=== PATIENT | male | born 1945 | race Caucasian/White ===

== ENCOUNTER 2018-04-07 22:53 | Observation (INO) ==
[2018-04-08] MEDS ORDERED: ONDANSETRON 4 MG/2 ML VIAL IV STA (00:45)
[2018-04-08] MEDS ORDERED: cefTRIAXone 1,000 MG in SODIUM CHLORIDE 0.9% 100 ML IV STA (00:45)
[2018-04-08] MEDS ORDERED: SODIUM CHLORIDE 0.9% 1,000 ML IV STA (00:45)
[2018-04-08] MEDS ORDERED: ACETAMINOPHEN 500 MG TABLET PO STA (00:45)
[2018-04-08 01:21] LABS: Basophils % 0.1 % (0.0-0.8); Eosinophils # 0.1 10*3/uL (0.0-0.87); Eosinophils % 0.9 % (0.00-10.9); Hemoglobin 13.5 GM/DL (14.0-18.0); Immature Granulocytes % 0.5 %; Immature Granulocytes Absolute 0.05 #; Lymphocytes # 0.6 10*3/uL (1.4-4.0); Mean Corpuscular HGB Conc 32.1 GM/DL (32-36); Mean Corpuscular Hemoglobin 34 PG (27-34); Mean Corpuscular Volume 105.8 FL (87-102); Mean Platelet Volume 9.4 FL (9.6-12.0); Monocytes # 1.1 10*3/uL (0.11-0.8); Monocytes % 9.5 % (1.7-12.7); Neutrophils # 9.3 10*3/uL (1.4-7.4); Platelet Count 236 T/CUMM (130-400); Red Blood Count 3.97 MC/CUMM (3.8-5.5); Red Cell Distribution Width 13.7 % (9.3-17.3); White Blood Count 11.1 T/CUMM (4-12)
[2018-04-08 01:44] LABS: Lactic Acid 1.7 MMOL/L (0.4-2.0)
[2018-04-08 01:46] LABS: Albumin 3.4 G/DL (3.4-5.0); Bilirubin,Total 0.7 MG/DL (0.2-1.0); Calcium 8.5 MG/DL (8.5-10.1); Osmolality,Calculated 280.4 MOS/KG (273-304); Potassium 4.4 MMOL/L (3.5-5.1); Total Protein 6.9 G/DL (6.4-8.3)
[2018-04-08 01:57] LABS: Apearance,Urine CLEAR (Clear); Bilirubin,Urine Negative (Negative); Blood, Urine Negative (Negative); Glucose,Urine (UA) Negative (Negative); Hyaline Casts,Urine 2 /LPF (0-3); Ketones,Urine Negative (Negative); Mucus,Urine Occasional /LPF (Occasional); Nitrite,Urine Negative (Negative); Protein,Urine 100 MG/DL; RBC,Urine <1 /HPF (0-4); Urine Color Yellow (Yellow); Urine Specific Gravity 1.013 (1.001-1.035); WBC,Urine 1 /HPF (0-6)
[2018-04-08] MEDS ORDERED: LACTULOSE 20 GM/30 ML UDCUP PO PRN (02:57)
[2018-04-08] MEDS ORDERED: MAGNESIUM HYDROXIDE SUSP 30 ML UDCUP PO PRN (02:57)
[2018-04-08] MEDS ORDERED: TEMAZEPAM 7.5 MG CAPSULE PO PRN (02:57)
[2018-04-08] MEDS ORDERED: ONDANSETRON ODT 4 MG TABLET PO PRN (02:57)
[2018-04-08] MEDS ORDERED: traMADol 50 MG TABLET PO PRN (02:57)
[2018-04-08] MEDS ORDERED: MYLANTA/LIDO VISC 2:1 300 ML BOTTLE SWISH/SPIT PRN (02:57)
[2018-04-08] MEDS ORDERED: ALUMINUM/MAGNES/SIMETH MAX STR 30 ML UDCUP PO PRN (02:57)
[2018-04-08] MEDS ORDERED: ALPRAZolam 0.25 MG TABLET PO PRN (02:57)
[2018-04-08] MEDS ORDERED: ACETAMINOPHEN 325 MG TABLET PO PRN (02:57)
[2018-04-08] MEDS ORDERED: LOPERAMIDE 2 MG CAPSULE PO PRN ×2 (02:57)
[2018-04-08] MEDS ORDERED: MYLANTA/LIDO VISC 2:1 300 ML BOTTLE SWISH/SWAL PRN (02:57)
[2018-04-08] MEDS ORDERED: SODIUM CHLORIDE 0.9% 1,000 ML IV SCH (02:57)
[2018-04-08] MEDS ORDERED: ONDANSETRON 4 MG/2 ML VIAL IV PRN (02:57)
[2018-04-08] MEDS ORDERED: cefTRIAXone 1,000 MG in SYRINGE 1 EACH IV ONE (03:30)
[2018-04-08 05:34] LABS: Basophils % 0.1 % (0.0-0.8); Eosinophils # 0.1 10*3/uL (0.0-0.87); Eosinophils % 0.9 % (0.00-10.9); Hematocrit 35.9 VOL% (42.0-52.0); Hemoglobin 11.8 GM/DL (14.0-18.0); Immature Granulocytes % 0.4 %; Immature Granulocytes Absolute 0.04 #; Lymphocytes # 0.8 10*3/uL (1.4-4.0); Lymphocytes % 7.8 % (21.2-54.2); Mean Corpuscular HGB Conc 32.9 GM/DL (32-36); Mean Corpuscular Hemoglobin 34 PG (27-34); Mean Corpuscular Volume 104.1 FL (87-102); Mean Platelet Volume 9.9 FL (9.6-12.0); Monocytes % 10.2 % (1.7-12.7); Neutrophils # 7.9 10*3/uL (1.4-7.4); Neutrophils % 80.6 % (38.7-73.9); Platelet Count 233 T/CUMM (130-400); Red Blood Count 3.45 MC/CUMM (3.8-5.5); Red Cell Distribution Width 13.9 % (9.3-17.3); White Blood Count 9.8 T/CUMM (4-12)
[2018-04-08] MEDS ORDERED: LEVOTHYROXINE 50 MCG TABLET PO SCH (06:00)
[2018-04-08 06:13] LABS: PT Patient Result 10.3 SECS
[2018-04-08 06:21] LABS: Bilirubin,Total 0.7 MG/DL (0.2-1.0); Calcium 8.2 MG/DL (8.5-10.1); Osmolality,Calculated 279.4 MOS/KG (273-304); Total Protein 6.5 G/DL (6.4-8.3)
[2018-04-08] MEDS ORDERED: CETIRIZINE 10 MG TABLET PO SCH (09:00)
[2018-04-08] MEDS ORDERED: FELODIPINE 5 MG TABLET PO SCH (09:00)
[2018-04-08] MEDS ORDERED: ASPIRIN EC 81 MG TABLET PO SCH (09:00)
[2018-04-08] MEDS ORDERED: CARVEDILOL CR 20 MG CAPSULE PO SCH (09:00)
[2018-04-08] MEDS ORDERED: MULTIVITAMIN (CENTRUM) TABLET PO SCH (09:00)
[2018-04-08 11:54] VITALS: BP 129/70
[2018-04-08] MEDS ORDERED: PAZOPANIB HCL PO SCH (21:00)
== END 2018-04-08 11:05 | disposition home or self-care (01) ==
LOC: N.ED 22:53 → N.EDINP 22:53 → N.4E 04-08 03:06
PROVIDERS: ADMIT Specialist; ATTEND Specialist

== ENCOUNTER 2021-12-29 13:40 | Inpatient (IN) ==
[2021-12-29] MEDS ORDERED: SODIUM CHLORIDE 0.9% 1,000 ML IV STA ×2 (16:17→19:44)
[2021-12-29 17:18] LABS: Basophils % 0.5 % (0.0-0.8); Eosinophils # 0.1 10*3/uL (0.0-0.87); Eosinophils % 0.9 % (0.00-10.9); Hematocrit 36.4 VOL% (42.0-52.0); Hemoglobin 11.7 GM/DL (14.0-18.0); Immature Granulocytes % 2.3 %; Lymphocytes # 0.3 10*3/uL (1.4-4.0); Lymphocytes % 3.6 % (21.2-54.2); Mean Corpuscular HGB Conc 32.1 GM/DL (32-36); Mean Platelet Volume 9.9 FL (9.6-12.0); Monocytes % 14.1 % (1.7-12.7); Neutrophils % 78.6 % (38.7-73.9); Platelet Count 320 T/CUMM (130-400); Red Blood Count 3.83 MC/CUMM (3.8-5.5); Red Cell Distribution Width 13.4 % (9.3-17.3); White Blood Count 8.6 T/CUMM (4-12)
[2021-12-29 18:09] LABS: Albumin 2.4 G/DL (3.4-5.0); Bilirubin,Total 0.6 MG/DL (0.20-1.00); Osmolality,Calculated 259.8 MOS/KG (273-304)
[2021-12-29] MEDS ORDERED: diphenhydrAMINE CAP 25 MG CAPSULE PO PRN (21:00)
[2021-12-29] MEDS ORDERED: NICOTINE 21 MG/24 HR PATCH TRANSDERM PRN (21:00)
[2021-12-29] MEDS ORDERED: DOCUSATE SODIUM 100 MG CAPSULE PO PRN (21:00)
[2021-12-29] MEDS ORDERED: cefTRIAXone 1,000 MG in SODIUM CHLORIDE 0.9% 100 ML IV SCH (21:00)
[2021-12-29] MEDS ORDERED: ONDANSETRON 4 MG/2 ML VIAL IV PRN (21:00)
[2021-12-29] MEDS ORDERED: ACETAMINOPHEN 325 MG TABLET PO PRN (21:00)
[2021-12-29] MEDS ORDERED: DEXTROSE 10% 250 ML BAG IV PRN (21:00)
[2021-12-29] MEDS ORDERED: GLUCAGON 1 MG VIAL IM PRN (21:00)
[2021-12-29] MEDS ORDERED: hydrALAZINE 20 MG/1 ML VIAL IV PRN (21:00)
[2021-12-29] MEDS: HEPARIN 5,000 UNIT/1 ML VIAL SUBCUT SCH (21:50)
[2021-12-29] MEDS: metroNIDAZOLE INJ 500 MG/100 ML PREMIX IV SCH (21:50)
[2021-12-29] MEDS: SODIUM CHLORIDE 0.9% 1,000 ML IV SCH (23:25)
[2021-12-30] MEDS: AZITHROMYCIN INJ 500 MG in SODIUM CHLORIDE 0.9% 250 ML IV SCH ×2 (00:20→23:57)
[2021-12-30] MEDS: ALBUTEROL 2.5 MG/3 ML NEB RESP TX SCH ×4 (01:04→17:50)
[2021-12-30 05:05] LABS: Basophils # 0.1 10*3/uL (0.0-0.2); Basophils % 0.5 % (0.0-0.8); Eosinophils # 0.1 10*3/uL (0.0-0.87); Eosinophils % 0.5 % (0.00-10.9); Hematocrit 30.9 VOL% (42.0-52.0); Hemoglobin 9.8 GM/DL (14.0-18.0); Lymphocytes # 0.3 10*3/uL (1.4-4.0); Lymphocytes % 2.8 % (21.2-54.2); Mean Corpuscular HGB Conc 31.7 GM/DL (32-36); Mean Corpuscular Volume 95.7 FL (87-102); Mean Platelet Volume 8.7 FL (9.6-12.0); Monocytes % 12.9 % (1.7-12.7); Neutrophils % 80.3 % (38.7-73.9); Platelet Count 325 T/CUMM (130-400); Red Blood Count 3.23 MC/CUMM (3.8-5.5); Red Cell Distribution Width 13.2 % (9.3-17.3); White Blood Count 9.9 T/CUMM (4-12)
[2021-12-30 05:26] LABS: Band Neutrophils 4 % (0-10); Eosinophils 1 % (0-10); Hypochromia 1+; Lymphocytes 4 % (20-55); Microcytosis 1+; Platelet Estimate Adequate; Segmented Neutrophils 79 % (50-85); Total Cells Counted 100
[2021-12-30] MEDS: metroNIDAZOLE INJ 500 MG/100 ML PREMIX IV SCH ×3 (05:31→21:30)
[2021-12-30 05:41] LABS: Albumin 2.1 G/DL (3.4-5.0); Bilirubin,Total 0.4 MG/DL (0.20-1.00); Calcium 6.5 MG/DL (8.5-10.1); Osmolality,Calculated 266.2 MOS/KG (273-304); Potassium 3.6 MMOL/L (3.5-5.1); Thyroid Stimulating Hormone 1.13 uIU/ml (0.358-3.74); Total Protein 5.5 G/DL (6.4-8.2)
[2021-12-30 06:24] LABS: Bilirubin,Urine Negative (Negative); Blood, Urine Negative (Negative); Glucose,Urine (UA) Negative (Negative); Ketones,Urine 20 mg/dL (Negative); Mucus,Urine Occasional /LPF (Occasional); Nitrite,Urine Negative (Negative); Protein,Urine 30 MG/DL; RBC,Urine 1 /HPF (0-4); Urine Appearance CLEAR (Clear); Urine Color Yellow (Yellow); Urine Specific Gravity 1.045 (1.001-1.035); Urine Urobilinogen < 2.0 EU/DL (<2.0)
[2021-12-30] MEDS: PANTOPRAZOLE 40 MG TABLET PO SCH (11:07)
[2021-12-30] MEDS: HEPARIN 5,000 UNIT/1 ML VIAL SUBCUT SCH ×2 (11:08→21:32)
[2021-12-30] MEDS: methylPREDNISolone SOD SUC 125 MG/2 ML VIAL IV SCH ×2 (11:08→21:35)
[2021-12-30] MEDS: SODIUM CHLORIDE 0.9% 1,000 ML IV SCH (11:41)
[2021-12-30 13:56] LABS: Hepatitis B Surface Ag Quant < 0.10 Index; Hepatitis B Surface Ag Result Non-Reactive (NonReactive); Hepatitis C Virus Ab Quant 0.07 Index; Hepatitis C Virus Ab Result Non-Reactive (NonReactive)
[2021-12-30] MEDS ORDERED: cefTRIAXone 2,000 MG in SODIUM CHLORIDE 0.9% 100 ML IV SCH (16:12)
[2021-12-30] MEDS ORDERED: ALBUTEROL 2.5 MG/3 ML NEB RESP TX PRN (17:45)
[2021-12-30] MEDS: INSULIN REGULAR 100 UNIT/ML SUBCUT SCH (21:31)
[2021-12-31] MEDS: SODIUM CHLORIDE 0.9% 1,000 ML IV SCH ×2 (00:12→21:15)
[2021-12-31] MEDS: ALBUTEROL 2.5 MG/3 ML NEB RESP TX SCH ×4 (01:43→19:30)
[2021-12-31] MEDS: metroNIDAZOLE INJ 500 MG/100 ML PREMIX IV SCH ×2 (04:30→13:27)
[2021-12-31] MEDS ORDERED: SODIUM CHLORIDE 0.65% NASAL SPRAY 45 ML BOTTLE BOTH NARES PRN (04:55)
[2021-12-31 05:13] LABS: Basophils % 0.4 % (0.0-0.8); Hematocrit 32.5 VOL% (42.0-52.0); Hemoglobin 10.2 GM/DL (14.0-18.0); Immature Granulocytes Absolute 0.52 #; Lymphocytes # 0.2 10*3/uL (1.4-4.0); Lymphocytes % 1.8 % (21.2-54.2); Mean Corpuscular HGB Conc 31.4 GM/DL (32-36); Mean Corpuscular Volume 94.5 FL (87-102); Mean Platelet Volume 8.9 FL (9.6-12.0); Monocytes % 2.7 % (1.7-12.7); Neutrophils % 90.1 % (38.7-73.9); Platelet Count 353 T/CUMM (130-400); Red Blood Count 3.44 MC/CUMM (3.8-5.5); Red Cell Distribution Width 13.4 % (9.3-17.3); White Blood Count 10.4 T/CUMM (4-12)
[2021-12-31] MEDS: LEVOTHYROXINE 50 MCG TABLET PO SCH (05:38)
[2021-12-31 05:42] LABS: Calcium 6.1 MG/DL (8.5-10.1); Osmolality,Calculated 285.5 MOS/KG (273-304); Potassium 3.6 MMOL/L (3.5-5.1)
[2021-12-31 05:44] LABS: Lymphocytes 2 % (20-55); Platelet Estimate Adequate; Segmented Neutrophils 92 % (50-85); Total Cells Counted 100
[2021-12-31] MEDS: PANTOPRAZOLE 40 MG TABLET PO SCH (09:47)
[2021-12-31] MEDS: CHOLECALCIFEROL 1,000 UNIT TABLET PO SCH (09:47)
[2021-12-31] MEDS: INSULIN REGULAR 100 UNIT/ML SUBCUT SCH ×4 (09:48→21:24)
[2021-12-31] MEDS: HEPARIN 5,000 UNIT/1 ML VIAL SUBCUT SCH ×2 (09:48→21:21)
[2021-12-31] MEDS: methylPREDNISolone SOD SUC 125 MG/2 ML VIAL IV SCH ×2 (09:48→21:18)
[2021-12-31] MEDS: guaiFENesin/DM ER 600-30 MG TABLET PO PRN (09:57)
[2021-12-31] MEDS: BENZONATATE 100 MG CAPSULE PO SCH ×2 (15:37→21:18)
[2021-12-31] MEDS: MEROPENEM 500 MG in SODIUM CHLORIDE 0.9% 100 ML IV SCH ×2 (15:37→21:15)
[2021-12-31] MEDS: CHOLESTYRAMINE 4 GM PACK PO SCH (21:18)
[2021-12-31] MEDS: AZITHROMYCIN INJ 500 MG in SODIUM CHLORIDE 0.9% 250 ML IV SCH (23:52)
[2022-01-01] MEDS: ZALEPLON 5 MG CAPSULE PO PRN ×2 (00:05→23:22)
[2022-01-01] MEDS: ALBUTEROL 2.5 MG/3 ML NEB RESP TX SCH ×4 (00:30→19:23)
[2022-01-01] MEDS: MEROPENEM 500 MG in SODIUM CHLORIDE 0.9% 100 ML IV SCH ×4 (03:53→21:27)
[2022-01-01] MEDS: SODIUM CHLORIDE 0.9% 1,000 ML IV SCH ×2 (03:54→13:11)
[2022-01-01] MEDS: LEVOTHYROXINE 50 MCG TABLET PO SCH (06:10)
[2022-01-01 07:10] LABS: Basophils # 0.1 10*3/uL (0.0-0.2); Basophils % 0.4 % (0.0-0.8); Hematocrit 30.5 VOL% (42.0-52.0); Hemoglobin 10.1 GM/DL (14.0-18.0); Immature Granulocytes % 7.8 %; Immature Granulocytes Absolute 1.44 #; Lymphocytes # 0.2 10*3/uL (1.4-4.0); Lymphocytes % 1.2 % (21.2-54.2); Mean Corpuscular HGB Conc 33.1 GM/DL (32-36); Mean Corpuscular Volume 92.7 FL (87-102); Mean Platelet Volume 9.1 FL (9.6-12.0); Neutrophils % 87.6 % (38.7-73.9); Platelet Count 368 T/CUMM (130-400); Red Blood Count 3.29 MC/CUMM (3.8-5.5); Red Cell Distribution Width 13.8 % (9.3-17.3); White Blood Count 18.6 T/CUMM (4-12)
[2022-01-01 07:33] LABS: Calcium 6.1 MG/DL (8.5-10.1); Osmolality,Calculated 289.5 MOS/KG (273-304); Potassium 3.1 MMOL/L (3.5-5.1)
[2022-01-01 07:39] LABS: Band Neutrophils 2 % (0-10); Hypochromia Slight; Lymphocytes 2 % (20-55); Microcytosis Slight; Platelet Estimate Adequate; Segmented Neutrophils 92 % (50-85); Total Cells Counted 100
[2022-01-01] MEDS: CHOLECALCIFEROL 1,000 UNIT TABLET PO SCH (08:56)
[2022-01-01] MEDS: guaiFENesin/DM ER 600-30 MG TABLET PO PRN ×2 (08:57→21:43)
[2022-01-01] MEDS: INSULIN REGULAR 100 UNIT/ML SUBCUT SCH ×4 (08:57→21:29)
[2022-01-01] MEDS: BENZONATATE 100 MG CAPSULE PO SCH ×3 (08:57→21:27)
[2022-01-01] MEDS: PANTOPRAZOLE 40 MG TABLET PO SCH (08:57)
[2022-01-01] MEDS: methylPREDNISolone SOD SUC 125 MG/2 ML VIAL IV SCH ×2 (08:58→21:27)
[2022-01-01] MEDS: HEPARIN 5,000 UNIT/1 ML VIAL SUBCUT SCH ×2 (08:59→21:27)
[2022-01-01] MEDS: CHOLESTYRAMINE 4 GM PACK PO SCH ×2 (09:04→21:29)
[2022-01-01] MEDS ORDERED: POTASSIUM CHLORIDE 20 MEQ TABLET PO ONE (16:13)
[2022-01-01] MEDS: FUROSEMIDE 40 MG TABLET PO SCH (17:34)
[2022-01-01] MEDS ORDERED: INSULIN GLARGINE 100 UNIT/ML SUBCUT SCH (21:00)
[2022-01-01] MEDS: SPIRONOLACTONE 50 MG TABLET PO SCH (21:27)
[2022-01-01] MEDS: AZITHROMYCIN INJ 500 MG in SODIUM CHLORIDE 0.9% 250 ML IV SCH (22:31)
[2022-01-02] MEDS: ALBUTEROL 2.5 MG/3 ML NEB RESP TX SCH ×4 (00:30→18:17)
[2022-01-02] MEDS: MEROPENEM 500 MG in SODIUM CHLORIDE 0.9% 100 ML IV SCH ×4 (04:25→22:27)
[2022-01-02] MEDS: LEVOTHYROXINE 50 MCG TABLET PO SCH (05:49)
[2022-01-02 06:38] LABS: Basophils # 0.1 10*3/uL (0.0-0.2); Basophils % 0.5 % (0.0-0.8); Hematocrit 30.9 VOL% (42.0-52.0); Hemoglobin 10.2 GM/DL (14.0-18.0); Immature Granulocytes % 9.5 %; Immature Granulocytes Absolute 1.67 #; Lymphocytes # 0.3 10*3/uL (1.4-4.0); Lymphocytes % 1.6 % (21.2-54.2); Mean Corpuscular Volume 92.5 FL (87-102); Monocytes % 3.4 % (1.7-12.7); NRBC # 0.05 10*3/uL; Platelet Count 362 T/CUMM (130-400); Red Blood Count 3.34 MC/CUMM (3.8-5.5); Red Cell Distribution Width 14.1 % (9.3-17.3); White Blood Count 17.6 T/CUMM (4-12)
[2022-01-02 06:59] LABS: Band Neutrophils 1 % (0-10); Lymphocytes 5 % (20-55); Segmented Neutrophils 88 % (50-85); Total Cells Counted 100
[2022-01-02 07:00] LABS: Platelet Estimate Normal
[2022-01-02 07:01] LABS: Hypochromia Slight
[2022-01-02 07:05] LABS: Osmolality,Calculated 292.7 MOS/KG (273-304); Potassium 3.1 MMOL/L (3.5-5.1)
[2022-01-02] MEDS: SODIUM CHLORIDE 0.9% 1,000 ML IV SCH (09:13)
[2022-01-02] MEDS: FUROSEMIDE 40 MG TABLET PO SCH ×2 (10:08→16:54)
[2022-01-02] MEDS: CHOLECALCIFEROL 1,000 UNIT TABLET PO SCH (10:08)
[2022-01-02] MEDS: SPIRONOLACTONE 50 MG TABLET PO SCH ×2 (10:08→22:22)
[2022-01-02] MEDS: BENZONATATE 100 MG CAPSULE PO SCH ×3 (10:08→22:21)
[2022-01-02] MEDS: PANTOPRAZOLE 40 MG TABLET PO SCH (10:08)
[2022-01-02] MEDS: HEPARIN 5,000 UNIT/1 ML VIAL SUBCUT SCH ×2 (10:08→22:22)
[2022-01-02] MEDS: methylPREDNISolone SOD SUC 125 MG/2 ML VIAL IV SCH ×2 (10:09→22:27)
[2022-01-02] MEDS: CHOLESTYRAMINE 4 GM PACK PO SCH (10:09)
[2022-01-02] MEDS: INSULIN REGULAR 100 UNIT/ML SUBCUT SCH ×4 (10:09→22:25)
[2022-01-02] MEDS: BACILLUS COAGULANS CAPLET PO SCH (16:54)
[2022-01-02] MEDS: guaiFENesin/DM ER 600-30 MG TABLET PO PRN (16:54)
[2022-01-02] MEDS ORDERED: CHOLESTYRAMINE 4 GM PACK PO SCH (22:00)
[2022-01-02] MEDS: POTASSIUM CHLORIDE 20 MEQ TABLET PO SCH (22:21)
[2022-01-02] MEDS: INSULIN GLARGINE 100 UNIT/ML SUBCUT SCH (22:23)
[2022-01-02] MEDS: ZALEPLON 5 MG CAPSULE PO PRN (22:27)
[2022-01-03] MEDS: ALBUTEROL 2.5 MG/3 ML NEB RESP TX SCH ×4 (00:14→18:14)
[2022-01-03] MEDS: MEROPENEM 500 MG in SODIUM CHLORIDE 0.9% 100 ML IV SCH ×4 (04:24→20:43)
[2022-01-03 05:22] LABS: Basophils # 0.1 10*3/uL (0.0-0.2); Basophils % 0.4 % (0.0-0.8); Hematocrit 30.6 VOL% (42.0-52.0); Hemoglobin 9.9 GM/DL (14.0-18.0); Immature Granulocytes % 10.7 %; Immature Granulocytes Absolute 1.71 #; Lymphocytes # 0.3 10*3/uL (1.4-4.0); Lymphocytes % 1.8 % (21.2-54.2); Mean Corpuscular HGB Conc 32.4 GM/DL (32-36); Mean Corpuscular Volume 93.3 FL (87-102); Mean Platelet Volume 9.1 FL (9.6-12.0); NRBC # 0.08 10*3/uL; Neutrophils % 83.1 % (38.7-73.9); Platelet Count 324 T/CUMM (130-400); Red Blood Count 3.28 MC/CUMM (3.8-5.5)
[2022-01-03 05:34] LABS: Osmolality,Calculated 287.7 MOS/KG (273-304); Potassium 3.7 MMOL/L (3.5-5.1)
[2022-01-03] MEDS: LEVOTHYROXINE 50 MCG TABLET PO SCH (06:05)
[2022-01-03 06:08] LABS: Lymphocytes 4 % (20-55); Metamyelocytes 1 %; Nucleated Red Blood Cells 1 (0-5); Segmented Neutrophils 91 % (50-85); Total Cells Counted 100
[2022-01-03 06:09] LABS: Hypochromia 1+
[2022-01-03 06:10] LABS: Microcytosis 1+
[2022-01-03] MEDS: PANTOPRAZOLE 40 MG TABLET PO SCH ×2 (10:15→20:34)
[2022-01-03] MEDS: methylPREDNISolone SOD SUC 125 MG/2 ML VIAL IV SCH ×2 (10:15→20:41)
[2022-01-03] MEDS: HEPARIN 5,000 UNIT/1 ML VIAL SUBCUT SCH ×2 (10:15→20:42)
[2022-01-03] MEDS: CHOLECALCIFEROL 1,000 UNIT TABLET PO SCH (10:15)
[2022-01-03] MEDS: BENZONATATE 100 MG CAPSULE PO SCH ×3 (10:15→20:33)
[2022-01-03] MEDS: BACILLUS COAGULANS CAPLET PO SCH (10:15)
[2022-01-03] MEDS: CHOLESTYRAMINE 4 GM PACK PO SCH ×2 (10:15→21:22)
[2022-01-03] MEDS: SPIRONOLACTONE 50 MG TABLET PO SCH ×2 (10:15→20:34)
[2022-01-03] MEDS: FUROSEMIDE 40 MG TABLET PO SCH ×2 (10:15→17:00)
[2022-01-03] MEDS: POTASSIUM CHLORIDE 20 MEQ TABLET PO SCH ×2 (10:15→20:34)
[2022-01-03] MEDS: INSULIN REGULAR 100 UNIT/ML SUBCUT SCH ×4 (11:23→21:15)
[2022-01-03] MEDS: GABAPENTIN 100 MG CAPSULE PO SCH (20:33)
[2022-01-03] MEDS: LOPERAMIDE 2 MG CAPSULE PO SCH (20:34)
[2022-01-03] MEDS: guaiFENesin/DM ER 600-30 MG TABLET PO SCH (21:15)
[2022-01-03] MEDS: INSULIN GLARGINE 100 UNIT/ML SUBCUT SCH (21:15)
[2022-01-04] MEDS: ALBUTEROL 2.5 MG/3 ML NEB RESP TX SCH ×4 (00:50→19:43)
[2022-01-04] MEDS: MEROPENEM 500 MG in SODIUM CHLORIDE 0.9% 100 ML IV SCH ×4 (02:00→21:18)
[2022-01-04 05:02] LABS: Basophils # 0.1 10*3/uL (0.0-0.2); Basophils % 0.4 % (0.0-0.8); Eosinophils % 0.1 % (0.00-10.9); Hematocrit 29.9 VOL% (42.0-52.0); Hemoglobin 9.7 GM/DL (14.0-18.0); Immature Granulocytes % 12.6 %; Immature Granulocytes Absolute 2.18 #; Lymphocytes # 0.3 10*3/uL (1.4-4.0); Lymphocytes % 1.8 % (21.2-54.2); Mean Corpuscular HGB Conc 32.4 GM/DL (32-36); Mean Corpuscular Volume 94.6 FL (87-102); Mean Platelet Volume 8.9 FL (9.6-12.0); Monocytes % 3.3 % (1.7-12.7); NRBC # 0.14 10*3/uL; Neutrophils % 81.8 % (38.7-73.9); Platelet Count 328 T/CUMM (130-400); Red Blood Count 3.16 MC/CUMM (3.8-5.5); Red Cell Distribution Width 14.2 % (9.3-17.3); White Blood Count 17.4 T/CUMM (4-12)
[2022-01-04 05:24] LABS: Osmolality,Calculated 288.3 MOS/KG (273-304); Potassium 4.3 MMOL/L (3.5-5.1)
[2022-01-04 05:35] LABS: Band Neutrophils 3 % (0-10); Hypochromia 1+; Lymphocytes 2 % (20-55); Microcytosis 1+; Nucleated Red Blood Cells 1 (0-5); Ovalocytes Slight; Platelet Estimate Adequate; Segmented Neutrophils 93 % (50-85); Total Cells Counted 100
[2022-01-04] MEDS: LEVOTHYROXINE 50 MCG TABLET PO SCH (06:14)
[2022-01-04] MEDS ORDERED: methylPREDNISolone SOD SUC 125 MG/2 ML VIAL IV ONE (08:50)
[2022-01-04] MEDS: INSULIN REGULAR 100 UNIT/ML SUBCUT SCH ×4 (09:00→21:17)
[2022-01-04] MEDS: POTASSIUM CHLORIDE 20 MEQ TABLET PO SCH ×2 (09:34→21:16)
[2022-01-04] MEDS: PANTOPRAZOLE 40 MG TABLET PO SCH ×2 (09:34→21:16)
[2022-01-04] MEDS: BACILLUS COAGULANS CAPLET PO SCH (09:34)
[2022-01-04] MEDS: GABAPENTIN 100 MG CAPSULE PO SCH ×3 (09:34→21:16)
[2022-01-04] MEDS: BENZONATATE 100 MG CAPSULE PO SCH ×3 (09:34→21:16)
[2022-01-04] MEDS: LOPERAMIDE 2 MG CAPSULE PO SCH ×3 (09:34→21:21)
[2022-01-04] MEDS: CHOLESTYRAMINE 4 GM PACK PO SCH ×2 (09:34→21:16)
[2022-01-04] MEDS: SPIRONOLACTONE 50 MG TABLET PO SCH ×2 (09:34→21:16)
[2022-01-04] MEDS: CHOLECALCIFEROL 1,000 UNIT TABLET PO SCH (09:34)
[2022-01-04] MEDS: FUROSEMIDE 40 MG TABLET PO SCH ×2 (09:43→16:57)
[2022-01-04] MEDS: guaiFENesin/DM ER 600-30 MG TABLET PO SCH ×2 (10:31→21:16)
[2022-01-04] MEDS: HEPARIN 5,000 UNIT/1 ML VIAL SUBCUT SCH ×2 (10:35→21:17)
[2022-01-04] MEDS: FLUTICASONE 50 MCG NASAL SPRAY 16 GM BOTTLE BOTH NARES SCH ×2 (10:38→21:17)
[2022-01-04] MEDS: INSULIN GLARGINE 100 UNIT/ML SUBCUT SCH (21:17)
[2022-01-05] MEDS: ALBUTEROL 2.5 MG/3 ML NEB RESP TX SCH ×3 (01:32→13:20)
[2022-01-05] MEDS: MEROPENEM 500 MG in SODIUM CHLORIDE 0.9% 100 ML IV SCH ×2 (05:17→10:51)
[2022-01-05] MEDS: LEVOTHYROXINE 50 MCG TABLET PO SCH ×2 (05:17→05:59)
[2022-01-05 05:43] LABS: Basophils # 0.1 10*3/uL (0.0-0.2); Basophils % 0.5 % (0.0-0.8); Eosinophils % 0.1 % (0.00-10.9); Hematocrit 32.7 VOL% (42.0-52.0); Hemoglobin 10.4 GM/DL (14.0-18.0); Immature Granulocytes % 13.5 %; Immature Granulocytes Absolute 2.47 #; Lymphocytes # 0.5 10*3/uL (1.4-4.0); Lymphocytes % 2.6 % (21.2-54.2); Mean Corpuscular HGB Conc 31.8 GM/DL (32-36); Mean Platelet Volume 9.2 FL (9.6-12.0); Monocytes % 5.6 % (1.7-12.7); NRBC # 0.15 10*3/uL; Neutrophils % 77.7 % (38.7-73.9); Platelet Count 324 T/CUMM (130-400); Red Blood Count 3.37 MC/CUMM (3.8-5.5); Red Cell Distribution Width 14.4 % (9.3-17.3); White Blood Count 18.4 T/CUMM (4-12)
[2022-01-05 05:59] LABS: Calcium 6.3 MG/DL (8.5-10.1); Osmolality,Calculated 282.8 MOS/KG (273-304); Potassium 5.1 MMOL/L (3.5-5.1)
[2022-01-05 06:13] LABS: Band Neutrophils 1 % (0-10); Hypochromia Slight; Lymphocytes 5 % (20-55); Microcytosis Slight; Nucleated Red Blood Cells 1 (0-5); Platelet Estimate Adequate; Segmented Neutrophils 87 % (50-85); Total Cells Counted 100
[2022-01-05] MEDS: INSULIN REGULAR 100 UNIT/ML SUBCUT SCH ×2 (08:12→11:56)
[2022-01-05] MEDS: PANTOPRAZOLE 40 MG TABLET PO SCH (09:36)
[2022-01-05] MEDS: POTASSIUM CHLORIDE 20 MEQ TABLET PO SCH (09:36)
[2022-01-05] MEDS: CHOLECALCIFEROL 1,000 UNIT TABLET PO SCH (09:36)
[2022-01-05] MEDS: GABAPENTIN 100 MG CAPSULE PO SCH (09:37)
[2022-01-05] MEDS: SPIRONOLACTONE 50 MG TABLET PO SCH (09:37)
[2022-01-05] MEDS: LOPERAMIDE 2 MG CAPSULE PO SCH (09:37)
[2022-01-05] MEDS: BENZONATATE 100 MG CAPSULE PO SCH (09:37)
[2022-01-05] MEDS: BACILLUS COAGULANS CAPLET PO SCH (09:37)
[2022-01-05] MEDS: FUROSEMIDE 40 MG TABLET PO SCH (09:38)
[2022-01-05] MEDS: guaiFENesin/DM ER 600-30 MG TABLET PO SCH (09:38)
[2022-01-05] MEDS: FLUTICASONE 50 MCG NASAL SPRAY 16 GM BOTTLE BOTH NARES SCH (10:51)
[2022-01-05] MEDS: HEPARIN 5,000 UNIT/1 ML VIAL SUBCUT SCH (10:51)
[2022-01-05] MEDS: CHOLESTYRAMINE 4 GM PACK PO SCH (10:51)
[2022-01-05 12:30] VITALS: BP 148/80
[2022-01-05] MEDS ORDERED: metroNIDAZOLE 500 MG TABLET PO SCH (15:00)
[2022-01-05] MEDS ORDERED: CIPROFLOXACIN 500 MG TABLET PO SCH (21:00)
== END 2022-01-05 15:43 | disposition home or self-care (01) | DRG 391 ==
LOC: N.ED 13:40 → N.EDINP 21:00 → N.TELES 22:08
PROVIDERS: ADMIT Hospitalist; ATTEND Hospitalist

== ENCOUNTER 2022-01-06 12:18 | Inpatient (IN) ==
[2022-01-06] MEDS ORDERED: DEXTROSE 50% 25 GM/50 ML SYRINGE IV ONE ×2 (13:32→15:34)
[2022-01-06] MEDS ORDERED: DEXTROSE 50% 25 GM/50 ML VIAL IV STA (13:41)
[2022-01-06 14:50] LABS: Potassium 5.1 MMOL/L (3.5-5.1)
[2022-01-06 14:52] LABS: Calcium 6.9 MG/DL (8.5-10.1)
[2022-01-06 14:53] LABS: Basophils # 0.1 10*3/uL (0.0-0.2); Basophils % 0.5 % (0.0-0.8); Eosinophils # 0.1 10*3/uL (0.0-0.87); Eosinophils % 0.6 % (0.00-10.9); Hematocrit 42.2 VOL% (42.0-52.0); Hemoglobin 13.7 GM/DL (14.0-18.0); Immature Granulocytes % 7.9 %; Immature Granulocytes Absolute 1.93 #; Lymphocytes # 0.3 10*3/uL (1.4-4.0); Lymphocytes % 1.3 % (21.2-54.2); Mean Corpuscular HGB Conc 32.5 GM/DL (32-36); Mean Corpuscular Volume 93.4 FL (87-102); Mean Platelet Volume 9.1 FL (9.6-12.0); Monocytes % 4.1 % (1.7-12.7); NRBC # 0.14 10*3/uL; Neutrophils % 85.6 % (38.7-73.9); Platelet Count 393 T/CUMM (130-400); Red Blood Count 4.52 MC/CUMM (3.8-5.5); Red Cell Distribution Width 14.5 % (9.3-17.3); White Blood Count 24.6 T/CUMM (4-12)
[2022-01-06 14:58] LABS: Albumin 3.2 G/DL (3.4-5.0); Bilirubin,Total 0.8 MG/DL (0.20-1.00); Total Protein 6.5 G/DL (6.4-8.2)
[2022-01-06 15:10] LABS: Band Neutrophils 2 % (0-10); Lymphocytes 3 % (20-55); Metamyelocytes 5 %; Myelocytes 3 %; Segmented Neutrophils 84 % (50-85); Total Cells Counted 100
[2022-01-06 15:11] LABS: Platelet Estimate Normal; Polychromasia 1+
[2022-01-06] MEDS ORDERED: GLUCAGON 1 MG VIAL IM PRN (16:05)
[2022-01-06] MEDS ORDERED: DEXTROSE 10% 25 GM/250 ML BAG IV PRN (16:05)
[2022-01-06] MEDS ORDERED: ONDANSETRON 4 MG/2 ML VIAL IV PRN (16:15)
[2022-01-06] MEDS ORDERED: hydrALAZINE 20 MG/1 ML VIAL IV PRN (16:15)
[2022-01-06] MEDS ORDERED: ACETAMINOPHEN 325 MG TABLET PO PRN (16:15)
[2022-01-06] MEDS ORDERED: ALBUTEROL 0.63 MG/3 ML NEB RESP TX PRN (16:24)
[2022-01-06] MEDS ORDERED: CALCIUM GLUCONATE RIDER 2,000 MG/100 ML PREMIX IV ONE (16:45)
[2022-01-06 20:01] LABS: Bacteria,Urine Occasional /HPF (Few); Bilirubin,Urine Negative (Negative); Blood, Urine Large mg/dL (Negative); Glucose,Urine (UA) 50 mg/dL (Negative); Ketones,Urine Negative (Negative); Mucus,Urine Occasional /LPF (Occasional); Nitrite,Urine Negative (Negative); Protein,Urine 30 MG/DL; RBC,Urine 4 /HPF (0-4); Urine Appearance CLEAR (Clear); Urine Color Yellow (Yellow); Urine Specific Gravity 1.012 (1.001-1.035); Urine Urobilinogen < 2.0 EU/DL (<2.0)
[2022-01-06] MEDS: cefTRIAXone 2,000 MG in SODIUM CHLORIDE 0.9% 100 ML IV SCH (20:28)
[2022-01-06] MEDS: DEXTROSE 5% NACL 0.45% 1,000 ML IV SCH (20:28)
[2022-01-06] MEDS: metroNIDAZOLE INJ 500 MG/100 ML PREMIX IV SCH (22:18)
[2022-01-06] MEDS: ENOXAPARIN 30 MG/0.3 ML SYRINGE SUBCUT SCH (22:18)
[2022-01-06] MEDS: methylPREDNISolone SOD SUC 40 MG/1 ML VIAL IV SCH (22:18)
[2022-01-07] MEDS: DEXTROSE 5% NACL 0.45% 1,000 ML IV SCH ×2 (03:07→12:05)
[2022-01-07] MEDS: metroNIDAZOLE INJ 500 MG/100 ML PREMIX IV SCH ×3 (05:08→23:35)
[2022-01-07] MEDS: LEVOTHYROXINE 100 MCG VIAL IV SCH (05:39)
[2022-01-07 05:40] LABS: Basophils # 0.1 10*3/uL (0.0-0.2); Basophils % 0.4 % (0.0-0.8); Eosinophils # 0.2 10*3/uL (0.0-0.87); Eosinophils % 0.9 % (0.00-10.9); Hematocrit 33.4 VOL% (42.0-52.0); Immature Granulocytes % 6.2 %; Immature Granulocytes Absolute 1.03 #; Lymphocytes # 0.4 10*3/uL (1.4-4.0); Lymphocytes % 2.6 % (21.2-54.2); Mean Corpuscular HGB Conc 32.9 GM/DL (32-36); Mean Corpuscular Volume 93.8 FL (87-102); Mean Platelet Volume 9.6 FL (9.6-12.0); Monocytes % 4.9 % (1.7-12.7); NRBC # 0.02 10*3/uL; Platelet Count 319 T/CUMM (130-400); Red Blood Count 3.56 MC/CUMM (3.8-5.5); Red Cell Distribution Width 14.3 % (9.3-17.3); White Blood Count 16.5 T/CUMM (4-12)
[2022-01-07 05:52] LABS: Bilirubin,Total 1.3 MG/DL (0.20-1.00); Calcium 6.6 MG/DL (8.5-10.1); Potassium 4.8 MMOL/L (3.5-5.1); Total Protein 5.4 G/DL (6.4-8.2)
[2022-01-07 06:26] LABS: Band Neutrophils 2 % (0-10); Hypochromia Slight; Lymphocytes 3 % (20-55); Microcytosis Slight; Platelet Estimate Adequate; Segmented Neutrophils 87 % (50-85); Total Cells Counted 100
[2022-01-07] MEDS: ASPIRIN CHEW 81 MG TABLET PO SCH (08:54)
[2022-01-07] MEDS: methylPREDNISolone SOD SUC 40 MG/1 ML VIAL IV SCH ×2 (12:03→23:38)
[2022-01-07] MEDS: cefTRIAXone 2,000 MG in SODIUM CHLORIDE 0.9% 100 ML IV SCH (15:55)
[2022-01-07] MEDS ORDERED: CALCIUM GLUCONATE RIDER 2,000 MG/100 ML PREMIX IV ONE (16:10)
[2022-01-07] MEDS: ENOXAPARIN 30 MG/0.3 ML SYRINGE SUBCUT SCH (23:38)
[2022-01-08] MEDS: SODIUM CHLORIDE 0.45% 1,000 ML IV SCH ×2 (00:30→19:46)
[2022-01-08] MEDS: DEXTROSE 5% NACL 0.45% 1,000 ML IV SCH ×2 (02:04→13:21)
[2022-01-08] MEDS: metroNIDAZOLE INJ 500 MG/100 ML PREMIX IV SCH ×3 (05:18→21:23)
[2022-01-08] MEDS: LEVOTHYROXINE 100 MCG VIAL IV SCH (06:00)
[2022-01-08 06:40] LABS: Basophils % 0.2 % (0.0-0.8); Hematocrit 31.8 VOL% (42.0-52.0); Hemoglobin 10.2 GM/DL (14.0-18.0); Immature Granulocytes % 4.4 %; Lymphocytes # 0.2 10*3/uL (1.4-4.0); Lymphocytes % 1.8 % (21.2-54.2); Mean Corpuscular HGB Conc 32.1 GM/DL (32-36); Mean Corpuscular Volume 94.4 FL (87-102); Mean Platelet Volume 9.8 FL (9.6-12.0); Monocytes % 3.3 % (1.7-12.7); Neutrophils % 90.3 % (38.7-73.9); Platelet Count 323 T/CUMM (130-400); Red Blood Count 3.37 MC/CUMM (3.8-5.5); Red Cell Distribution Width 13.9 % (9.3-17.3); White Blood Count 13.7 T/CUMM (4-12)
[2022-01-08 06:53] LABS: Calcium 7.1 MG/DL (8.5-10.1); Potassium 4.8 MMOL/L (3.5-5.1)
[2022-01-08 07:01] LABS: Band Neutrophils 1 % (0-10); Segmented Neutrophils 98 % (50-85); Total Cells Counted 100
[2022-01-08 07:02] LABS: Hypochromia Slight; Microcytosis Slight; Platelet Estimate Adequate
[2022-01-08] MEDS: predniSONE 10 MG TABLET PO SCH (10:05)
[2022-01-08] MEDS: ASPIRIN CHEW 81 MG TABLET PO SCH (10:05)
[2022-01-08] MEDS ORDERED: TUBERCULIN SKIN TEST 0.1 ML SYRINGE INTRADERM ONE (10:33)
[2022-01-08] MEDS: cefTRIAXone 2,000 MG in SODIUM CHLORIDE 0.9% 100 ML IV SCH (17:07)
[2022-01-08] MEDS: INSULIN GLARGINE 100 UNIT/ML SUBCUT SCH (21:23)
[2022-01-08] MEDS: ENOXAPARIN 30 MG/0.3 ML SYRINGE SUBCUT SCH (21:23)
[2022-01-09] MEDS: SODIUM CHLORIDE 0.45% 1,000 ML IV SCH ×3 (00:01→17:24)
[2022-01-09] MEDS: metroNIDAZOLE INJ 500 MG/100 ML PREMIX IV SCH ×3 (04:27→20:47)
[2022-01-09 05:53] LABS: Basophils % 0.2 % (0.0-0.8); Eosinophils # 0.1 10*3/uL (0.0-0.87); Eosinophils % 1.1 % (0.00-10.9); Hematocrit 32.3 VOL% (42.0-52.0); Hemoglobin 10.6 GM/DL (14.0-18.0); Immature Granulocytes % 2.3 %; Immature Granulocytes Absolute 0.24 #; Lymphocytes # 0.5 10*3/uL (1.4-4.0); Lymphocytes % 4.8 % (21.2-54.2); Mean Corpuscular HGB Conc 32.8 GM/DL (32-36); Mean Corpuscular Volume 93.9 FL (87-102); Mean Platelet Volume 9.4 FL (9.6-12.0); Monocytes % 6.9 % (1.7-12.7); Neutrophils % 84.7 % (38.7-73.9); Platelet Count 326 T/CUMM (130-400); Red Blood Count 3.44 MC/CUMM (3.8-5.5); Red Cell Distribution Width 13.8 % (9.3-17.3); White Blood Count 10.6 T/CUMM (4-12)
[2022-01-09 06:06] LABS: Calcium 7.6 MG/DL (8.5-10.1); Osmolality,Calculated 282.7 MOS/KG (273-304); Potassium 4.3 MMOL/L (3.5-5.1)
[2022-01-09] MEDS: LEVOTHYROXINE 100 MCG VIAL IV SCH (06:13)
[2022-01-09 06:37] LABS: Eosinophils 3 % (0-10); Lymphocytes 7 % (20-55); Platelet Estimate Normal; Segmented Neutrophils 89 % (50-85); Total Cells Counted 100
[2022-01-09] MEDS: ASPIRIN CHEW 81 MG TABLET PO SCH (09:00)
[2022-01-09] MEDS: predniSONE 10 MG TABLET PO SCH (09:01)
[2022-01-09] MEDS: LACTULOSE 20 GM/30 ML UDCUP PO SCH (09:01)
[2022-01-09] MEDS: cefTRIAXone 2,000 MG in SODIUM CHLORIDE 0.9% 100 ML IV SCH (17:24)
[2022-01-09] MEDS: INSULIN GLARGINE 100 UNIT/ML SUBCUT SCH (20:46)
[2022-01-09] MEDS: ENOXAPARIN 30 MG/0.3 ML SYRINGE SUBCUT SCH (20:46)
[2022-01-10] MEDS: SODIUM CHLORIDE 0.45% 1,000 ML IV SCH ×2 (02:43→05:21)
[2022-01-10] MEDS: metroNIDAZOLE INJ 500 MG/100 ML PREMIX IV SCH ×3 (04:27→21:10)
[2022-01-10 05:10] LABS: Basophils % 0.2 % (0.0-0.8); Eosinophils # 0.2 10*3/uL (0.0-0.87); Eosinophils % 1.4 % (0.00-10.9); Hematocrit 33.7 VOL% (42.0-52.0); Hemoglobin 10.9 GM/DL (14.0-18.0); Immature Granulocytes % 3.3 %; Immature Granulocytes Absolute 0.36 #; Lymphocytes # 0.5 10*3/uL (1.4-4.0); Lymphocytes % 4.9 % (21.2-54.2); Mean Corpuscular HGB Conc 32.3 GM/DL (32-36); Mean Corpuscular Volume 95.2 FL (87-102); Mean Platelet Volume 9.6 FL (9.6-12.0); Monocytes % 7.6 % (1.7-12.7); Neutrophils % 82.6 % (38.7-73.9); Platelet Count 334 T/CUMM (130-400); Red Blood Count 3.54 MC/CUMM (3.8-5.5); Red Cell Distribution Width 13.7 % (9.3-17.3); White Blood Count 10.8 T/CUMM (4-12)
[2022-01-10 05:35] LABS: Albumin 2.3 G/DL (3.4-5.0); Bilirubin,Total 0.5 MG/DL (0.20-1.00); Calcium 7.7 MG/DL (8.5-10.1); Osmolality,Calculated 277.8 MOS/KG (273-304); Potassium 3.7 MMOL/L (3.5-5.1); Total Protein 5.7 G/DL (6.4-8.2)
[2022-01-10 05:42] LABS: Hypochromia Slight; Lymphocytes 4 % (20-55); Microcytosis Slight; Platelet Estimate Adequate; Segmented Neutrophils 91 % (50-85); Total Cells Counted 100
[2022-01-10] MEDS: LEVOTHYROXINE 100 MCG VIAL IV SCH (06:30)
[2022-01-10] MEDS: ASPIRIN CHEW 81 MG TABLET PO SCH (09:19)
[2022-01-10] MEDS: LACTULOSE 20 GM/30 ML UDCUP PO SCH (09:20)
[2022-01-10] MEDS: predniSONE 10 MG TABLET PO SCH (09:20)
[2022-01-10] MEDS ORDERED: HYDROCORTISONE 1% CREAM 28 GM TUBE TOP PRN (14:35)
[2022-01-10] MEDS: cefTRIAXone 2,000 MG in SODIUM CHLORIDE 0.9% 100 ML IV SCH (17:05)
[2022-01-10] MEDS: INSULIN GLARGINE 100 UNIT/ML SUBCUT SCH (21:09)
[2022-01-10] MEDS: ENOXAPARIN 30 MG/0.3 ML SYRINGE SUBCUT SCH (21:09)
[2022-01-11] MEDS: metroNIDAZOLE INJ 500 MG/100 ML PREMIX IV SCH ×2 (05:08→13:25)
[2022-01-11] MEDS: LEVOTHYROXINE 50 MCG TABLET PO SCH (05:49)
[2022-01-11] MEDS: SODIUM CHLORIDE 0.45% 1,000 ML IV SCH ×2 (06:11→08:59)
[2022-01-11] MEDS: predniSONE 10 MG TABLET PO SCH (08:58)
[2022-01-11] MEDS: ASPIRIN CHEW 81 MG TABLET PO SCH (08:58)
[2022-01-11] MEDS: LACTULOSE 20 GM/30 ML UDCUP PO SCH (08:59)
[2022-01-11] MEDS: PANTOPRAZOLE 40 MG TABLET PO SCH (14:07)
[2022-01-11] MEDS ORDERED: guaiFENesin/CODEINE 5 ML LIQUID PO PRN (16:19)
[2022-01-11] MEDS ORDERED: cefTRIAXone 2,000 MG in SODIUM CHLORIDE 0.9% 100 ML IV SCH (17:00)
[2022-01-11] MEDS: cefTRIAXone 2,000 MG in SODIUM CHLORIDE 0.9% 100 ML IV SCH (17:01)
[2022-01-11] MEDS: BUDESONIDE 0.5 MG/2 ML NEB RESP TX SCH (19:46)
[2022-01-11] MEDS: ARFORMOTEROL 15 MCG/2 ML NEB RESP TX SCH (19:46)
[2022-01-11] MEDS: ENOXAPARIN 30 MG/0.3 ML SYRINGE SUBCUT SCH (21:07)
[2022-01-11] MEDS: INSULIN GLARGINE 100 UNIT/ML SUBCUT SCH (21:08)
[2022-01-12] MEDS: LEVOTHYROXINE 50 MCG TABLET PO SCH (05:50)
[2022-01-12] MEDS: ARFORMOTEROL 15 MCG/2 ML NEB RESP TX SCH (07:40)
[2022-01-12] MEDS: BUDESONIDE 0.5 MG/2 ML NEB RESP TX SCH (07:40)
[2022-01-12] MEDS: LACTULOSE 20 GM/30 ML UDCUP PO SCH (08:46)
[2022-01-12] MEDS: ASPIRIN CHEW 81 MG TABLET PO SCH (08:46)
[2022-01-12] MEDS: PANTOPRAZOLE 40 MG TABLET PO SCH (08:46)
[2022-01-12] MEDS: predniSONE 10 MG TABLET PO SCH (08:46)
[2022-01-12] MEDS: SODIUM CHLORIDE 0.45% 1,000 ML IV SCH (08:48)
[2022-01-12 12:44] VITALS: BP 137/73
[2022-01-12] MEDS ORDERED: INSULIN GLARGINE 100 UNIT/ML SUBCUT SCH (21:00)
== END 2022-01-12 13:16 | DRG 637 ==
LOC: EDUNIT# → SUATTDRO → N.ED 12:18 → SUATTDRO 16:05 → N.TELES 16:05
PROVIDERS: ADMIT Internal Medicine; ATTEND Internal Medicine

== ENCOUNTER 2022-02-01 10:41 | Inpatient (IN) ==
[2022-02-01] MEDS ORDERED: SODIUM CHLORIDE 0.9% 1,000 ML IV STA (13:24)
[2022-02-01 14:23] LABS: Basophils # 0.1 10*3/uL (0.0-0.2); Basophils % 0.5 % (0.0-0.8); Eosinophils # 0.1 10*3/uL (0.0-0.87); Eosinophils % 0.7 % (0.00-10.9); Hematocrit 37.8 VOL% (42.0-52.0); Immature Granulocytes % 4.3 %; Immature Granulocytes Absolute 0.46 #; Lymphocytes # 0.6 10*3/uL (1.4-4.0); Mean Corpuscular HGB Conc 31.7 GM/DL (32-36); Mean Corpuscular Volume 94.7 FL (87-102); Mean Platelet Volume 8.8 FL (9.6-12.0); Monocytes % 7.6 % (1.7-12.7); Neutrophils % 80.9 % (38.7-73.9); Platelet Count 309 T/CUMM (130-400); Red Blood Count 3.99 MC/CUMM (3.8-5.5); Red Cell Distribution Width 13.6 % (9.3-17.3); White Blood Count 10.7 T/CUMM (4-12)
[2022-02-01 14:52] LABS: Alanine Aminotransferase 23 U/L (16-61); Albumin 2.5 G/DL (3.4-5.0); Alkaline Phosphatase 163 U/L (45-117); Aspartate Amino Transferase 16 U/L (0-37); Bilirubin,Total < 0.39 MG/DL (0.20-1.00); Blood Urea Nitrogen 13 MG/DL (7-18); Carbon Dioxide 25 MMOL/L (21-32); Estimated Glom Filtration Rate 53 ML/MIN; Glucose 90 MG/DL (74-106); Osmolality,Calculated 272.8 MOS/KG (273-304); Potassium 3.9 MMOL/L (3.5-5.1); Sodium 137 MMOL/L (136-145); Total Protein 5.9 G/DL (6.4-8.2)
[2022-02-01] MEDS ORDERED: ZALEPLON 5 MG CAPSULE PO PRN (16:33)
[2022-02-01] MEDS: SODIUM CHLORIDE 0.9% 1,000 ML IV SCH (17:08)
[2022-02-01] MEDS: ENOXAPARIN 40 MG/0.4 ML SYRINGE SUBCUT SCH (17:08)
[2022-02-01] MEDS ORDERED: GLUCAGON 1 MG VIAL IM PRN (18:05)
[2022-02-01] MEDS ORDERED: DEXTROSE 50% 25 GM/50 ML VIAL IV PRN (18:05)
[2022-02-01] MEDS ORDERED: ALBUTEROL 0.63 MG/3 ML NEB RESP TX PRN (18:05)
[2022-02-01] MEDS ORDERED: DEXTROSE 10% 250 ML BAG IV PRN (18:22)
[2022-02-01] MEDS ORDERED: ALBUTEROL 2.5 MG/3 ML NEB RESP TX PRN (18:23)
[2022-02-01] MEDS: ARFORMOTEROL 15 MCG/2 ML NEB RESP TX SCH (19:30)
[2022-02-01] MEDS: BUDESONIDE 0.5 MG/2 ML NEB RESP TX SCH (19:30)
[2022-02-01] MEDS: guaiFENesin/DM ER 600-30 MG TABLET PO SCH (23:26)
[2022-02-01] MEDS: HYDROXYCHLOROQUINE 200 MG TABLET PO SCH (23:26)
[2022-02-01] MEDS: metroNIDAZOLE 500 MG TABLET PO SCH (23:26)
[2022-02-01] MEDS: INSULIN REGULAR 100 UNIT/ML SUBCUT SCH (23:27)
[2022-02-02] MEDS ORDERED: PROMETHAZINE 25 MG/1 ML VIAL IM PRN ×2 (02:14→03:00)
[2022-02-02] MEDS ORDERED: PROMETHAZINE 25 MG/1 ML VIAL ONE (02:34)
[2022-02-02] MEDS: SODIUM CHLORIDE 0.9% 1,000 ML IV SCH ×2 (02:47→12:05)
[2022-02-02 05:57] LABS: Basophils # 0.1 10*3/uL (0.0-0.2); Basophils % 0.5 % (0.0-0.8); Eosinophils # 0.1 10*3/uL (0.0-0.87); Eosinophils % 1.1 % (0.00-10.9); Hematocrit 34.3 VOL% (42.0-52.0); Hemoglobin 10.8 GM/DL (14.0-18.0); Immature Granulocytes % 4.3 %; Immature Granulocytes Absolute 0.49 #; Lymphocytes # 0.5 10*3/uL (1.4-4.0); Lymphocytes % 4.5 % (21.2-54.2); Mean Corpuscular HGB Conc 31.5 GM/DL (32-36); Monocytes % 6.9 % (1.7-12.7); Neutrophils % 82.7 % (38.7-73.9); Platelet Count 281 T/CUMM (130-400); Red Blood Count 3.61 MC/CUMM (3.8-5.5); Red Cell Distribution Width 13.6 % (9.3-17.3); White Blood Count 11.4 T/CUMM (4-12)
[2022-02-02 06:11] LABS: Albumin 1.9 G/DL (3.4-5.0); Bilirubin,Total 0.4 MG/DL (0.20-1.00); Calcium 6.5 MG/DL (8.5-10.1); Osmolality,Calculated 277.4 MOS/KG (273-304); Potassium 3.7 MMOL/L (3.5-5.1); Total Protein 4.9 G/DL (6.4-8.2)
[2022-02-02] MEDS: LEVOTHYROXINE 50 MCG TABLET PO SCH (06:26)
[2022-02-02 06:29] LABS: Lymphocytes 7 % (20-55); Microcytosis Slight; Segmented Neutrophils 86 % (50-85); Total Cells Counted 100
[2022-02-02 06:30] LABS: Platelet Estimate Normal
[2022-02-02] MEDS: BUDESONIDE 0.5 MG/2 ML NEB RESP TX SCH ×2 (07:20→19:33)
[2022-02-02] MEDS: ARFORMOTEROL 15 MCG/2 ML NEB RESP TX SCH ×2 (07:20→19:32)
[2022-02-02] MEDS: ASPIRIN EC 81 MG TABLET PO SCH (09:59)
[2022-02-02] MEDS: MULTIVITAMIN (CENTRUM) TABLET PO SCH (09:59)
[2022-02-02] MEDS: predniSONE 10 MG TABLET PO SCH (09:59)
[2022-02-02] MEDS: guaiFENesin/DM ER 600-30 MG TABLET PO SCH ×2 (09:59→20:50)
[2022-02-02] MEDS: sulfaSALAzine 500 MG TABLET PO SCH (09:59)
[2022-02-02] MEDS: metroNIDAZOLE 500 MG TABLET PO SCH ×3 (09:59→20:50)
[2022-02-02] MEDS: BACILLUS COAGULANS CAPLET PO SCH (09:59)
[2022-02-02] MEDS: HYDROXYCHLOROQUINE 200 MG TABLET PO SCH ×2 (10:00→20:50)
[2022-02-02] MEDS: INSULIN REGULAR 100 UNIT/ML SUBCUT SCH ×4 (10:39→20:50)
[2022-02-02] MEDS: ENOXAPARIN 40 MG/0.4 ML SYRINGE SUBCUT SCH (16:26)
[2022-02-03 05:20] LABS: Basophils % 0.4 % (0.0-0.8); Eosinophils # 0.1 10*3/uL (0.0-0.87); Eosinophils % 0.7 % (0.00-10.9); Hemoglobin 11.1 GM/DL (14.0-18.0); Immature Granulocytes % 3.4 %; Immature Granulocytes Absolute 0.36 #; Lymphocytes # 0.7 10*3/uL (1.4-4.0); Lymphocytes % 6.4 % (21.2-54.2); Mean Corpuscular HGB Conc 31.7 GM/DL (32-36); Mean Corpuscular Volume 95.9 FL (87-102); Mean Platelet Volume 9.2 FL (9.6-12.0); Monocytes % 7.4 % (1.7-12.7); Neutrophils % 81.7 % (38.7-73.9); Platelet Count 266 T/CUMM (130-400); Red Blood Count 3.65 MC/CUMM (3.8-5.5); White Blood Count 10.5 T/CUMM (4-12)
[2022-02-03] MEDS: LEVOTHYROXINE 50 MCG TABLET PO SCH (05:28)
[2022-02-03 05:51] LABS: Alanine Aminotransferase 16 U/L (16-61); Albumin 2.2 G/DL (3.4-5.0); Alkaline Phosphatase 133 U/L (45-117); Aspartate Amino Transferase 16 U/L (0-37); Bilirubin,Total < 0.39 MG/DL (0.20-1.00); Blood Urea Nitrogen 12 MG/DL (7-18); Calcium 6.6 MG/DL (8.5-10.1); Carbon Dioxide 23 MMOL/L (21-32); Estimated Glom Filtration Rate 57 ML/MIN; Glucose 91 MG/DL (74-106); Osmolality,Calculated 278.4 MOS/KG (273-304); Potassium 3.6 MMOL/L (3.5-5.1); Sodium 140 MMOL/L (136-145); Total Protein 5.3 G/DL (6.4-8.2)
[2022-02-03] MEDS: SODIUM CHLORIDE 0.9% 1,000 ML IV SCH ×2 (06:15→17:30)
[2022-02-03] MEDS: ARFORMOTEROL 15 MCG/2 ML NEB RESP TX SCH ×2 (07:30→19:47)
[2022-02-03] MEDS: BUDESONIDE 0.5 MG/2 ML NEB RESP TX SCH ×2 (07:30→19:47)
[2022-02-03] MEDS: INSULIN REGULAR 100 UNIT/ML SUBCUT SCH ×4 (07:30→20:18)
[2022-02-03] MEDS: sulfaSALAzine 500 MG TABLET PO SCH (09:18)
[2022-02-03] MEDS: ASPIRIN EC 81 MG TABLET PO SCH (09:18)
[2022-02-03] MEDS: HYDROXYCHLOROQUINE 200 MG TABLET PO SCH ×2 (09:18→20:01)
[2022-02-03] MEDS: BACILLUS COAGULANS CAPLET PO SCH (09:18)
[2022-02-03] MEDS: MULTIVITAMIN (CENTRUM) TABLET PO SCH (09:18)
[2022-02-03] MEDS: metroNIDAZOLE 500 MG TABLET PO SCH ×2 (09:18→16:35)
[2022-02-03] MEDS: guaiFENesin/DM ER 600-30 MG TABLET PO SCH ×2 (09:18→20:01)
[2022-02-03] MEDS: predniSONE 10 MG TABLET PO SCH (09:18)
[2022-02-03] MEDS: ENOXAPARIN 40 MG/0.4 ML SYRINGE SUBCUT SCH (16:35)
[2022-02-03] MEDS: ACETAMINOPHEN 325 MG TABLET PO PRN (20:01)
[2022-02-03] MEDS: PROMETHAZINE 25 MG/1 ML VIAL IM PRN (20:21)
[2022-02-04 05:46] LABS: Basophils % 0.3 % (0.0-0.8); Eosinophils # 0.1 10*3/uL (0.0-0.87); Eosinophils % 1.1 % (0.00-10.9); Hematocrit 32.5 VOL% (42.0-52.0); Hemoglobin 9.9 GM/DL (14.0-18.0); Immature Granulocytes % 3.7 %; Immature Granulocytes Absolute 0.24 #; Lymphocytes # 0.5 10*3/uL (1.4-4.0); Lymphocytes % 7.5 % (21.2-54.2); Mean Corpuscular HGB Conc 30.5 GM/DL (32-36); Mean Corpuscular Volume 97.9 FL (87-102); Mean Platelet Volume 9.2 FL (9.6-12.0); Monocytes % 11.1 % (1.7-12.7); Neutrophils % 76.3 % (38.7-73.9); Platelet Count 244 T/CUMM (130-400); Red Blood Count 3.32 MC/CUMM (3.8-5.5); Red Cell Distribution Width 14.2 % (9.3-17.3); White Blood Count 6.6 T/CUMM (4-12)
[2022-02-04] MEDS: SODIUM CHLORIDE 0.9% 1,000 ML IV SCH ×3 (05:50→22:00)
[2022-02-04] MEDS: LEVOTHYROXINE 50 MCG TABLET PO SCH (05:50)
[2022-02-04 06:13] LABS: Alanine Aminotransferase 14 U/L (16-61); Albumin 1.8 G/DL (3.4-5.0); Alkaline Phosphatase 107 U/L (45-117); Aspartate Amino Transferase 14 U/L (0-37); Bilirubin,Total < 0.39 MG/DL (0.20-1.00); Blood Urea Nitrogen 7 MG/DL (7-18); Calcium 6.2 MG/DL (8.5-10.1); Carbon Dioxide 21 MMOL/L (21-32); Estimated Glom Filtration Rate 68 ML/MIN; Glucose 75 MG/DL (74-106); Osmolality,Calculated 275.4 MOS/KG (273-304); Potassium 3.6 MMOL/L (3.5-5.1); Sodium 140 MMOL/L (136-145); Total Protein 4.8 G/DL (6.4-8.2)
[2022-02-04] MEDS: ARFORMOTEROL 15 MCG/2 ML NEB RESP TX SCH ×2 (07:30→19:25)
[2022-02-04] MEDS: INSULIN REGULAR 100 UNIT/ML SUBCUT SCH ×4 (07:30→21:20)
[2022-02-04] MEDS: BUDESONIDE 0.5 MG/2 ML NEB RESP TX SCH ×2 (07:30→19:30)
[2022-02-04] MEDS: predniSONE 10 MG TABLET PO SCH (08:46)
[2022-02-04] MEDS: ASPIRIN EC 81 MG TABLET PO SCH (08:46)
[2022-02-04] MEDS: BACILLUS COAGULANS CAPLET PO SCH (08:46)
[2022-02-04] MEDS: HYDROXYCHLOROQUINE 200 MG TABLET PO SCH ×2 (08:46→21:20)
[2022-02-04] MEDS: sulfaSALAzine 500 MG TABLET PO SCH (08:46)
[2022-02-04] MEDS: MULTIVITAMIN (CENTRUM) TABLET PO SCH (08:46)
[2022-02-04] MEDS: guaiFENesin/DM ER 600-30 MG TABLET PO SCH ×2 (08:46→21:20)
[2022-02-04] MEDS ORDERED: BISACODYL 5 MG TABLET PO ONE (12:00)
[2022-02-04] MEDS ORDERED: POLYETHYLENE GLYCOL POWDER 255 GM BOTTLE PO ONE (18:00)
[2022-02-04] MEDS ORDERED: MAGNESIUM CITRATE 300 ML BOTTLE PO ONE (21:00)
[2022-02-05] MEDS: PROMETHAZINE 25 MG/1 ML VIAL IM PRN (00:35)
[2022-02-05] MEDS: LEVOTHYROXINE 50 MCG TABLET PO SCH (05:14)
[2022-02-05 06:19] LABS: Basophils % 0.6 % (0.0-0.8); Eosinophils # 0.1 10*3/uL (0.0-0.87); Eosinophils % 1.1 % (0.00-10.9); Hematocrit 39.4 VOL% (42.0-52.0); Hemoglobin 12.5 GM/DL (14.0-18.0); Immature Granulocytes % 2.6 %; Immature Granulocytes Absolute 0.16 #; Lymphocytes # 0.5 10*3/uL (1.4-4.0); Lymphocytes % 8.2 % (21.2-54.2); Mean Corpuscular HGB Conc 31.7 GM/DL (32-36); Mean Corpuscular Volume 94.7 FL (87-102); Mean Platelet Volume 8.6 FL (9.6-12.0); Monocytes % 11.1 % (1.7-12.7); Neutrophils % 76.4 % (38.7-73.9); Platelet Count 246 T/CUMM (130-400); Red Blood Count 4.16 MC/CUMM (3.8-5.5); Red Cell Distribution Width 14.5 % (9.3-17.3); White Blood Count 6.2 T/CUMM (4-12)
[2022-02-05 06:22] LABS: PT Patient Result 11.1 SECS (10.5-12.0)
[2022-02-05 06:36] LABS: Alanine Aminotransferase 21 U/L (16-61); Albumin 2.1 G/DL (3.4-5.0); Alkaline Phosphatase 111 U/L (45-117); Aspartate Amino Transferase 15 U/L (0-37); Bilirubin,Total < 0.39 MG/DL (0.20-1.00); Blood Urea Nitrogen 4 MG/DL (7-18); Carbon Dioxide 18 MMOL/L (21-32); Estimated Glom Filtration Rate 68 ML/MIN; Glucose 81 MG/DL (74-106); Sodium 143 MMOL/L (136-145); Total Protein 5.5 G/DL (6.4-8.2)
[2022-02-05 06:44] LABS: Band Neutrophils 7 % (0-10); Eosinophils 2 % (0-10); Lymphocytes 9 % (20-55); Macrocytosis Slight; Platelet Estimate Normal; Segmented Neutrophils 68 % (50-85); Total Cells Counted 100
[2022-02-05 06:45] LABS: Anisocytosis Slight
[2022-02-05] MEDS: BUDESONIDE 0.5 MG/2 ML NEB RESP TX SCH ×2 (07:00→19:26)
[2022-02-05] MEDS: ARFORMOTEROL 15 MCG/2 ML NEB RESP TX SCH ×2 (07:00→19:26)
[2022-02-05] MEDS: INSULIN REGULAR 100 UNIT/ML SUBCUT SCH ×4 (08:08→20:34)
[2022-02-05] MEDS: LACTATED RINGERS 1,000 ML IV SCH (10:22)
[2022-02-05] MEDS ORDERED: LIDOCAINE 2% 5 ML VIAL ONE (11:12)
[2022-02-05] MEDS ORDERED: propofoL 200 MG/20 ML VIAL IV ONE (11:12)
[2022-02-05] MEDS ORDERED: PHENYLEPHRINE 1 MG/10 ML SYRINGE IV ONE (11:21)
[2022-02-05] MEDS: BACILLUS COAGULANS CAPLET PO SCH (12:50)
[2022-02-05] MEDS: guaiFENesin/DM ER 600-30 MG TABLET PO SCH ×2 (12:50→20:34)
[2022-02-05] MEDS: MULTIVITAMIN (CENTRUM) TABLET PO SCH (12:50)
[2022-02-05] MEDS: ASPIRIN EC 81 MG TABLET PO SCH (12:50)
[2022-02-05] MEDS: HYDROXYCHLOROQUINE 200 MG TABLET PO SCH ×2 (12:50→20:34)
[2022-02-05] MEDS: SODIUM CHLORIDE 0.9% 1,000 ML IV SCH (12:50)
[2022-02-05] MEDS: predniSONE 10 MG TABLET PO SCH (12:50)
[2022-02-05] MEDS: sulfaSALAzine 500 MG TABLET PO SCH ×3 (13:17→20:34)
[2022-02-05] MEDS: BUDESONIDE 3 MG CAPSULE PO SCH (14:15)
[2022-02-05] MEDS: FOLIC ACID 1 MG TABLET PO SCH (14:15)
[2022-02-05] MEDS ORDERED: SODIUM BICARB INJ 100 MEQ in DEXTROSE 5% NACL 0.45% 1,000 ML IV SCH (16:00)
[2022-02-05] MEDS: SODIUM BICARB INJ 100 MEQ, POTASSIUM CHLORIDE INJ 20 MEQ in DEXTROSE 5% 1,000 ML IV SCH (18:15)
[2022-02-06] MEDS: LEVOTHYROXINE 50 MCG TABLET PO SCH (05:04)
[2022-02-06 05:33] LABS: Basophils % 0.3 % (0.0-0.8); Eosinophils % 0.4 % (0.00-10.9); Hematocrit 32.3 VOL% (42.0-52.0); Immature Granulocytes % 1.8 %; Immature Granulocytes Absolute 0.14 #; Lymphocytes # 0.4 10*3/uL (1.4-4.0); Lymphocytes % 4.6 % (21.2-54.2); Mean Corpuscular Volume 95.6 FL (87-102); Mean Platelet Volume 8.8 FL (9.6-12.0); Monocytes % 9.1 % (1.7-12.7); Neutrophils % 83.8 % (38.7-73.9); Platelet Count 264 T/CUMM (130-400); Red Blood Count 3.38 MC/CUMM (3.8-5.5); Red Cell Distribution Width 14.6 % (9.3-17.3); White Blood Count 7.7 T/CUMM (4-12)
[2022-02-06] MEDS: SODIUM BICARB INJ 100 MEQ, POTASSIUM CHLORIDE INJ 20 MEQ in DEXTROSE 5% 1,000 ML IV SCH ×2 (05:44→21:21)
[2022-02-06 05:55] LABS: Osmolality,Calculated 281.1 MOS/KG (273-304); Potassium 3.5 MMOL/L (3.5-5.1)
[2022-02-06 06:03] LABS: Eosinophils 1 % (0-10); Lymphocytes 4 % (20-55); Platelet Estimate Normal; Segmented Neutrophils 85 % (50-85); Total Cells Counted 100
[2022-02-06 06:05] LABS: Calcium 5.7 MG/DL (8.5-10.1)
[2022-02-06 06:16] LABS: Alanine Aminotransferase 13 U/L (16-61); Albumin 1.8 G/DL (3.4-5.0); Alkaline Phosphatase 98 U/L (45-117); Aspartate Amino Transferase 13 U/L (0-37); Bilirubin,Total < 0.39 MG/DL (0.20-1.00); Blood Urea Nitrogen 4 MG/DL (7-18); Calcium 6.1 MG/DL (8.5-10.1); Carbon Dioxide 24 MMOL/L (21-32); Estimated Glom Filtration Rate 76 ML/MIN; Glucose 126 MG/DL (74-106); Osmolality,Calculated 279.3 MOS/KG (273-304); Potassium 3.5 MMOL/L (3.5-5.1); Sodium 141 MMOL/L (136-145); Total Protein 4.8 G/DL (6.4-8.2)
[2022-02-06] MEDS: ARFORMOTEROL 15 MCG/2 ML NEB RESP TX SCH ×2 (07:35→19:33)
[2022-02-06] MEDS: BUDESONIDE 0.5 MG/2 ML NEB RESP TX SCH ×2 (07:35→19:33)
[2022-02-06] MEDS ORDERED: CALCIUM GLUCONATE RIDER 2,000 MG/100 ML PREMIX IV ONE (08:00)
[2022-02-06] MEDS ORDERED: MAGNESIUM SULF RIDER 4 GM/100 ML PREMIX IV PRN (08:36)
[2022-02-06] MEDS ORDERED: POTASSIUM PHOSPHATE 30 MMOL in SODIUM CHLORIDE 0.9% 250 ML IV ONE (08:36)
[2022-02-06] MEDS ORDERED: CALCIUM GLUCONATE RIDER 1,000 MG/50 ML PREMIX IV ONE (08:36)
[2022-02-06] MEDS ORDERED: MAGNESIUM SULF RIDER 2 GM/50 ML PREMIX IV PRN (08:36)
[2022-02-06] MEDS: sulfaSALAzine 500 MG TABLET PO SCH ×3 (09:29→21:24)
[2022-02-06] MEDS: MULTIVITAMIN (CENTRUM) TABLET PO SCH (09:30)
[2022-02-06] MEDS: BACILLUS COAGULANS CAPLET PO SCH (09:30)
[2022-02-06] MEDS: guaiFENesin/DM ER 600-30 MG TABLET PO SCH ×2 (09:30→21:24)
[2022-02-06] MEDS: HYDROXYCHLOROQUINE 200 MG TABLET PO SCH ×2 (09:30→21:24)
[2022-02-06] MEDS: ASPIRIN EC 81 MG TABLET PO SCH (09:30)
[2022-02-06] MEDS: FOLIC ACID 1 MG TABLET PO SCH (09:31)
[2022-02-06] MEDS: predniSONE 10 MG TABLET PO SCH (09:31)
[2022-02-06] MEDS: BUDESONIDE 3 MG CAPSULE PO SCH (09:35)
[2022-02-06] MEDS: PROMETHAZINE 25 MG/1 ML VIAL IM PRN (09:36)
[2022-02-06] MEDS: INSULIN REGULAR 100 UNIT/ML SUBCUT SCH ×4 (12:14→21:24)
[2022-02-06] MEDS: CHOLESTYRAMINE/ASPARTAME 4 GM PACK PO SCH ×2 (16:41→21:24)
[2022-02-06] MEDS: LACTATED RINGERS 1,000 ML IV SCH (21:19)
[2022-02-06] MEDS: ACETAMINOPHEN 325 MG TABLET PO PRN (21:24)
[2022-02-07] MEDS: PROMETHAZINE 25 MG/1 ML VIAL IM PRN ×2 (01:55→12:18)
[2022-02-07] MEDS: LEVOTHYROXINE 50 MCG TABLET PO SCH (05:03)
[2022-02-07 05:20] LABS: Basophils % 0.2 % (0.0-0.8); Eosinophils % 0.4 % (0.00-10.9); Hematocrit 31.2 VOL% (42.0-52.0); Hemoglobin 9.9 GM/DL (14.0-18.0); Immature Granulocytes % 1.2 %; Lymphocytes # 0.4 10*3/uL (1.4-4.0); Lymphocytes % 5.4 % (21.2-54.2); Mean Corpuscular HGB Conc 31.7 GM/DL (32-36); Mean Corpuscular Volume 95.4 FL (87-102); Mean Platelet Volume 8.7 FL (9.6-12.0); Monocytes % 9.1 % (1.7-12.7); Neutrophils % 83.7 % (38.7-73.9); Platelet Count 268 T/CUMM (130-400); Red Blood Count 3.27 MC/CUMM (3.8-5.5); Red Cell Distribution Width 14.9 % (9.3-17.3); White Blood Count 8.1 T/CUMM (4-12)
[2022-02-07 05:44] LABS: Calcium 6.5 MG/DL (8.5-10.1); Osmolality,Calculated 278.3 MOS/KG (273-304); Potassium 3.8 MMOL/L (3.5-5.1)
[2022-02-07] MEDS: ARFORMOTEROL 15 MCG/2 ML NEB RESP TX SCH ×2 (07:25→19:34)
[2022-02-07] MEDS: BUDESONIDE 0.5 MG/2 ML NEB RESP TX SCH ×2 (07:32→19:34)
[2022-02-07] MEDS: INSULIN REGULAR 100 UNIT/ML SUBCUT SCH ×4 (07:49→20:13)
[2022-02-07] MEDS ORDERED: CALCIUM GLUCONATE RIDER 2,000 MG/100 ML PREMIX IV ONE (08:45)
[2022-02-07] MEDS: FOLIC ACID 1 MG TABLET PO SCH (08:50)
[2022-02-07] MEDS: guaiFENesin/DM ER 600-30 MG TABLET PO SCH ×2 (08:50→20:11)
[2022-02-07] MEDS: HYDROXYCHLOROQUINE 200 MG TABLET PO SCH ×2 (08:50→20:11)
[2022-02-07] MEDS: BUDESONIDE 3 MG CAPSULE PO SCH (08:50)
[2022-02-07] MEDS: BACILLUS COAGULANS CAPLET PO SCH (08:50)
[2022-02-07] MEDS: MULTIVITAMIN (CENTRUM) TABLET PO SCH (08:50)
[2022-02-07] MEDS: sulfaSALAzine 500 MG TABLET PO SCH ×3 (08:50→20:11)
[2022-02-07] MEDS: predniSONE 10 MG TABLET PO SCH (08:51)
[2022-02-07] MEDS: ASPIRIN EC 81 MG TABLET PO SCH (08:51)
[2022-02-07] MEDS: SODIUM BICARB INJ 100 MEQ, POTASSIUM CHLORIDE INJ 20 MEQ in DEXTROSE 5% 1,000 ML IV SCH ×2 (10:21→20:16)
[2022-02-07] MEDS: CHOLESTYRAMINE/ASPARTAME 4 GM PACK PO SCH ×2 (10:28→22:50)
[2022-02-07] MEDS: ACETAMINOPHEN 325 MG TABLET PO PRN (20:12)
[2022-02-07] MEDS: MESALAMINE ENEMA 4 GM/60 ML BOTTLE RECTAL SCH (20:13)
[2022-02-08 05:15] LABS: Basophils % 0.5 % (0.0-0.8); Eosinophils % 0.5 % (0.00-10.9); Hematocrit 31.5 VOL% (42.0-52.0); Hemoglobin 10.1 GM/DL (14.0-18.0); Immature Granulocytes % 1.5 %; Lymphocytes # 0.4 10*3/uL (1.4-4.0); Lymphocytes % 6.4 % (21.2-54.2); Mean Corpuscular HGB Conc 32.1 GM/DL (32-36); Mean Corpuscular Volume 94.3 FL (87-102); Mean Platelet Volume 8.6 FL (9.6-12.0); Monocytes % 10.6 % (1.7-12.7); Neutrophils % 80.5 % (38.7-73.9); Platelet Count 280 T/CUMM (130-400); Red Blood Count 3.34 MC/CUMM (3.8-5.5); Red Cell Distribution Width 14.8 % (9.3-17.3); White Blood Count 6.5 T/CUMM (4-12)
[2022-02-08 05:49] LABS: Calcium 6.9 MG/DL (8.5-10.1); Osmolality,Calculated 280.1 MOS/KG (273-304)
[2022-02-08] MEDS: LEVOTHYROXINE 50 MCG TABLET PO SCH (06:13)
[2022-02-08] MEDS: SODIUM BICARB INJ 100 MEQ, POTASSIUM CHLORIDE INJ 20 MEQ in DEXTROSE 5% 1,000 ML IV SCH (06:13)
[2022-02-08] MEDS: INSULIN REGULAR 100 UNIT/ML SUBCUT SCH ×4 (07:42→22:27)
[2022-02-08] MEDS: BUDESONIDE 0.5 MG/2 ML NEB RESP TX SCH ×2 (07:43→19:15)
[2022-02-08] MEDS: ARFORMOTEROL 15 MCG/2 ML NEB RESP TX SCH ×2 (07:43→19:05)
[2022-02-08] MEDS: FOLIC ACID 1 MG TABLET PO SCH (09:12)
[2022-02-08] MEDS: ASPIRIN EC 81 MG TABLET PO SCH (09:12)
[2022-02-08] MEDS: CHOLESTYRAMINE/ASPARTAME 4 GM PACK PO SCH ×2 (09:12→22:04)
[2022-02-08] MEDS: BUDESONIDE 3 MG CAPSULE PO SCH (09:12)
[2022-02-08] MEDS: predniSONE 10 MG TABLET PO SCH (09:12)
[2022-02-08] MEDS: BACILLUS COAGULANS CAPLET PO SCH (09:12)
[2022-02-08] MEDS: guaiFENesin/DM ER 600-30 MG TABLET PO SCH ×2 (09:12→22:04)
[2022-02-08] MEDS: sulfaSALAzine 500 MG TABLET PO SCH ×3 (09:12→22:04)
[2022-02-08] MEDS: HYDROXYCHLOROQUINE 200 MG TABLET PO SCH ×2 (09:12→22:04)
[2022-02-08] MEDS: MULTIVITAMIN (CENTRUM) TABLET PO SCH (09:12)
[2022-02-08] MEDS: LACTATED RINGERS 1,000 ML IV SCH ×2 (10:35→10:36)
[2022-02-08] MEDS: MESALAMINE ENEMA 4 GM/60 ML BOTTLE RECTAL SCH (22:05)
[2022-02-09] MEDS: LEVOTHYROXINE 50 MCG TABLET PO SCH (05:21)
[2022-02-09 05:57] LABS: Basophils % 0.3 % (0.0-0.8); Eosinophils # 0.1 10*3/uL (0.0-0.87); Eosinophils % 0.9 % (0.00-10.9); Immature Granulocytes % 1.6 %; Immature Granulocytes Absolute 0.11 #; Lymphocytes # 0.5 10*3/uL (1.4-4.0); Lymphocytes % 7.5 % (21.2-54.2); Mean Corpuscular HGB Conc 32.3 GM/DL (32-36); Mean Corpuscular Volume 93.9 FL (87-102); Mean Platelet Volume 8.6 FL (9.6-12.0); Monocytes % 10.5 % (1.7-12.7); Neutrophils % 79.2 % (38.7-73.9); Platelet Count 289 T/CUMM (130-400); Red Cell Distribution Width 14.8 % (9.3-17.3); White Blood Count 6.8 T/CUMM (4-12)
[2022-02-09 06:13] LABS: Calcium 7.1 MG/DL (8.5-10.1); Osmolality,Calculated 275.4 MOS/KG (273-304)
[2022-02-09] MEDS: ARFORMOTEROL 15 MCG/2 ML NEB RESP TX SCH (07:18)
[2022-02-09] MEDS: BUDESONIDE 0.5 MG/2 ML NEB RESP TX SCH (07:18)
[2022-02-09] MEDS: INSULIN REGULAR 100 UNIT/ML SUBCUT SCH ×2 (07:30→11:33)
[2022-02-09] MEDS: LACTATED RINGERS 1,000 ML IV SCH (08:03)
[2022-02-09] MEDS: predniSONE 10 MG TABLET PO SCH (08:59)
[2022-02-09] MEDS: HYDROXYCHLOROQUINE 200 MG TABLET PO SCH (08:59)
[2022-02-09] MEDS: BACILLUS COAGULANS CAPLET PO SCH (08:59)
[2022-02-09] MEDS: FOLIC ACID 1 MG TABLET PO SCH (08:59)
[2022-02-09] MEDS: MULTIVITAMIN (CENTRUM) TABLET PO SCH (08:59)
[2022-02-09] MEDS: guaiFENesin/DM ER 600-30 MG TABLET PO SCH (08:59)
[2022-02-09] MEDS: BUDESONIDE 3 MG CAPSULE PO SCH (08:59)
[2022-02-09] MEDS: sulfaSALAzine 500 MG TABLET PO SCH (08:59)
[2022-02-09] MEDS: ASPIRIN EC 81 MG TABLET PO SCH (08:59)
[2022-02-09] MEDS: CHOLESTYRAMINE/ASPARTAME 4 GM PACK PO SCH (10:30)
[2022-02-09 15:59] VITALS: BP 131/63
== END 2022-02-09 15:50 | DRG 386 ==
LOC: EDUNIT# → EDBD → N.ED 10:41 → N.EDINP 10:41 → SUATTDRO 16:33 → N.5E 17:28 → SUATTDRO 02-03 14:07
PROVIDERS: ADMIT Internal Medicine; ATTEND Internal Medicine

== ENCOUNTER 2022-02-27 21:51 | Inpatient (IN) ==
[2022-02-28] MEDS ORDERED: SODIUM CHLORIDE 0.9% 1,000 ML IV STA (00:45)
[2022-02-28] MEDS ORDERED: METOCLOPRAMIDE 10 MG/2 ML VIAL IV STA (00:46)
[2022-02-28 01:47] LABS: Basophils % 0.3 % (0.0-0.8); Eosinophils # 0.1 10*3/uL (0.0-0.87); Eosinophils % 1.4 % (0.00-10.9); Hematocrit 35.7 VOL% (42.0-52.0); Hemoglobin 11.1 GM/DL (14.0-18.0); Immature Granulocytes % 2.5 %; Immature Granulocytes Absolute 0.18 #; Lymphocytes # 0.5 10*3/uL (1.4-4.0); Lymphocytes % 7.4 % (21.2-54.2); Mean Corpuscular HGB Conc 31.1 GM/DL (32-36); Mean Corpuscular Volume 97.5 FL (87-102); Mean Platelet Volume 9.6 FL (9.6-12.0); Monocytes # 0.7 10*3/uL (0.11-0.8); Monocytes % 10.3 % (1.7-12.7); Neutrophils % 78.1 % (38.7-73.9); Platelet Count 327 T/CUMM (130-400); Red Blood Count 3.66 MC/CUMM (3.8-5.5); Red Cell Distribution Width 14.6 % (9.3-17.3); White Blood Count 7.2 T/CUMM (4-12)
[2022-02-28 02:13] LABS: Albumin 3.1 G/DL (3.4-5.0); Bilirubin,Total 0.4 MG/DL (0.20-1.00); Calcium 9.1 MG/DL (8.5-10.1); Osmolality,Calculated 277.5 MOS/KG (273-304); Potassium 3.6 MMOL/L (3.5-5.1); Total Protein 6.5 G/DL (6.4-8.2)
[2022-02-28 04:28] LABS: Glucose,Urine (UA) Negative (Negative); Hyaline Casts,Urine 1 /LPF (0-3); Ketones,Urine Negative (Negative); Mucus,Urine Occasional /LPF (Occasional); Protein,Urine 30 mg/dL (Negative); RBC,Urine 2 /HPF (0-4); Squamous Epithelial Cell,Urine Occasional /HPF (0-10); Urine Appearance Clear (Clear); Urine Color Yellow (Yellow); Urine Specific Gravity 1.015 (1.001-1.035)
[2022-02-28 04:29] LABS: Bilirubin,Urine Negative (Negative); Blood, Urine Negative (Negative); Nitrite,Urine Negative (Negative); Urine Urobilinogen 0.2 eU/dL (<2.0)
[2022-02-28] MEDS ORDERED: ACETAMINOPHEN 325 MG TABLET PO PRN (04:40)
[2022-02-28] MEDS ORDERED: PROMETHAZINE 25 MG/1 ML VIAL IV PRN (04:40)
[2022-02-28] MEDS ORDERED: GLUCAGON 1 MG VIAL IM PRN (04:40)
[2022-02-28] MEDS ORDERED: ONDANSETRON 4 MG/2 ML VIAL IV PRN (04:40)
[2022-02-28] MEDS ORDERED: DEXTROSE 10% 250 ML BAG IV PRN (04:40)
[2022-02-28] MEDS: SODIUM CHLORIDE 0.9% 1,000 ML IV SCH ×2 (05:34→15:25)
[2022-02-28] MEDS: INSULIN LISPRO 100 UNIT/ML SUBCUT SCH ×4 (07:30→21:03)
[2022-02-28] MEDS: PANTOPRAZOLE 40 MG TABLET PO SCH (13:58)
[2022-02-28] MEDS: PROMETHAZINE INJ 25 MG in SODIUM CHLORIDE 0.9% 50 ML IV PRN (15:46)
[2022-02-28] MEDS: ENOXAPARIN 40 MG/0.4 ML SYRINGE SUBCUT SCH (21:05)
[2022-03-01] MEDS: SODIUM CHLORIDE 0.9% 1,000 ML IV SCH ×3 (02:07→21:02)
[2022-03-01 05:07] LABS: Basophils % 0.2 % (0.0-0.8); Eosinophils # 0.1 10*3/uL (0.0-0.87); Eosinophils % 2.5 % (0.00-10.9); Hematocrit 31.3 VOL% (42.0-52.0); Hemoglobin 9.7 GM/DL (14.0-18.0); Immature Granulocytes % 1.6 %; Immature Granulocytes Absolute 0.09 #; Lymphocytes # 0.4 10*3/uL (1.4-4.0); Lymphocytes % 7.2 % (21.2-54.2); Mean Corpuscular Volume 96.9 FL (87-102); Mean Platelet Volume 9.5 FL (9.6-12.0); Monocytes # 0.7 10*3/uL (0.11-0.8); Monocytes % 12.1 % (1.7-12.7); Neutrophils % 76.4 % (38.7-73.9); Platelet Count 264 T/CUMM (130-400); Red Blood Count 3.23 MC/CUMM (3.8-5.5); Red Cell Distribution Width 14.6 % (9.3-17.3); White Blood Count 5.6 T/CUMM (4-12)
[2022-03-01 05:30] LABS: Osmolality,Calculated 279.1 MOS/KG (273-304); Potassium 3.9 MMOL/L (3.5-5.1)
[2022-03-01 05:59] LABS: Alanine Aminotransferase 27 U/L (16-61); Albumin 2.4 G/DL (3.4-5.0); Alkaline Phosphatase 97 U/L (45-117); Aspartate Amino Transferase 12 U/L (0-37); Bilirubin,Total < 0.39 MG/DL (0.20-1.00); Blood Urea Nitrogen 7 MG/DL (7-18); Calcium 7.6 MG/DL (8.5-10.1); Carbon Dioxide 26 MMOL/L (21-32); Chloride 112 MMOL/L (98-107); Estimated Glom Filtration Rate 69 ML/MIN; Glucose 84 MG/DL (74-106); Potassium 3.9 MMOL/L (3.5-5.1); Sodium 143 MMOL/L (136-145); Total Protein 5.8 G/DL (6.4-8.2)
[2022-03-01] MEDS: PROMETHAZINE INJ 25 MG in SODIUM CHLORIDE 0.9% 50 ML IV PRN (06:24)
[2022-03-01] MEDS: INSULIN LISPRO 100 UNIT/ML SUBCUT SCH ×4 (08:35→21:01)
[2022-03-01] MEDS: PANTOPRAZOLE 40 MG TABLET PO SCH (09:38)
[2022-03-01] MEDS: LACTATED RINGERS 1,000 ML IV SCH (11:08)
[2022-03-01] MEDS ORDERED: propofoL 200 MG/20 ML VIAL IV ONE (11:48)
[2022-03-01] MEDS ORDERED: LIDOCAINE 2% 5 ML VIAL ONE (11:48)
[2022-03-01] MEDS: PANTOPRAZOLE 40 MG VIAL IV SCH ×2 (13:57→20:59)
[2022-03-01] MEDS: ENOXAPARIN 40 MG/0.4 ML SYRINGE SUBCUT SCH (20:59)
[2022-03-02] MEDS: SODIUM CHLORIDE 0.9% 1,000 ML IV SCH ×3 (06:12→20:06)
[2022-03-02 06:14] LABS: Basophils % 0.3 % (0.0-0.8); Eosinophils # 0.2 10*3/uL (0.0-0.87); Eosinophils % 2.8 % (0.00-10.9); Hematocrit 34.9 VOL% (42.0-52.0); Hemoglobin 10.7 GM/DL (14.0-18.0); Immature Granulocytes % 1.9 %; Immature Granulocytes Absolute 0.12 #; Lymphocytes # 0.4 10*3/uL (1.4-4.0); Lymphocytes % 6.5 % (21.2-54.2); Mean Corpuscular HGB Conc 30.7 GM/DL (32-36); Mean Corpuscular Volume 97.8 FL (87-102); Mean Platelet Volume 10.1 FL (9.6-12.0); Monocytes # 0.7 10*3/uL (0.11-0.8); Monocytes % 11.9 % (1.7-12.7); Neutrophils % 76.6 % (38.7-73.9); Platelet Count 241 T/CUMM (130-400); Red Blood Count 3.57 MC/CUMM (3.8-5.5); Red Cell Distribution Width 14.5 % (9.3-17.3); White Blood Count 6.2 T/CUMM (4-12)
[2022-03-02 06:27] LABS: Calcium 7.9 MG/DL (8.5-10.1); Potassium 3.4 MMOL/L (3.5-5.1)
[2022-03-02] MEDS: INSULIN LISPRO 100 UNIT/ML SUBCUT SCH ×4 (09:36→20:56)
[2022-03-02] MEDS: PANTOPRAZOLE 40 MG VIAL IV SCH ×2 (09:43→20:55)
[2022-03-02] MEDS: LACTATED RINGERS 1,000 ML IV SCH (20:06)
[2022-03-02] MEDS: ENOXAPARIN 40 MG/0.4 ML SYRINGE SUBCUT SCH (20:56)
[2022-03-03 05:31] LABS: Basophils % 0.5 % (0.0-0.8); Eosinophils # 0.2 10*3/uL (0.0-0.87); Eosinophils % 2.5 % (0.00-10.9); Hematocrit 31.8 VOL% (42.0-52.0); Hemoglobin 9.7 GM/DL (14.0-18.0); Immature Granulocytes % 2.2 %; Immature Granulocytes Absolute 0.13 #; Lymphocytes # 0.4 10*3/uL (1.4-4.0); Lymphocytes % 7.4 % (21.2-54.2); Mean Corpuscular HGB Conc 30.5 GM/DL (32-36); Mean Corpuscular Volume 97.8 FL (87-102); Mean Platelet Volume 9.5 FL (9.6-12.0); Monocytes # 0.9 10*3/uL (0.11-0.8); Monocytes % 14.2 % (1.7-12.7); Neutrophils % 73.2 % (38.7-73.9); Platelet Count 258 T/CUMM (130-400); Red Blood Count 3.25 MC/CUMM (3.8-5.5); Red Cell Distribution Width 14.3 % (9.3-17.3)
[2022-03-03 05:51] LABS: Calcium 7.4 MG/DL (8.5-10.1); Osmolality,Calculated 279.1 MOS/KG (273-304); Potassium 3.4 MMOL/L (3.5-5.1)
[2022-03-03] MEDS: INSULIN LISPRO 100 UNIT/ML SUBCUT SCH ×2 (07:37→11:33)
[2022-03-03] MEDS: PANTOPRAZOLE 40 MG VIAL IV SCH (09:38)
[2022-03-03] MEDS ORDERED: PROMETHAZINE 25 MG TABLET PO PRN (11:47)
[2022-03-03 11:56] VITALS: BP 157/78
== END 2022-03-03 14:25 | disposition home or self-care (01) | DRG 392 ==
LOC: N.ED 21:51 → N.EDINP 21:51 → N.3E 02-28 15:02 → SUATTDRO 03-01 15:18
PROVIDERS: ADMIT Family Medicine; ATTEND Hospitalist

== ENCOUNTER 2022-03-15 17:31 | Inpatient (IN) ==
[2022-03-15] MEDS ORDERED: PROMETHAZINE 25 MG/1 ML VIAL ONE (18:07)
[2022-03-15] MEDS ORDERED: SODIUM CHLORIDE 0.9% 1,000 ML IV STA (18:07)
[2022-03-15] MEDS ORDERED: PROMETHAZINE INJ 25 MG in SODIUM CHLORIDE 0.9% 50 ML IV STA (18:08)
[2022-03-15 18:42] LABS: Basophils % 0.3 % (0.0-0.8); Eosinophils # 0.1 10*3/uL (0.0-0.87); Eosinophils % 1.8 % (0.00-10.9); Hematocrit 36.8 VOL% (42.0-52.0); Hemoglobin 11.8 GM/DL (14.0-18.0); Immature Granulocytes % 0.8 %; Immature Granulocytes Absolute 0.06 #; Lymphocytes # 0.6 10*3/uL (1.4-4.0); Lymphocytes % 8.6 % (21.2-54.2); Mean Corpuscular HGB Conc 32.1 GM/DL (32-36); Mean Corpuscular Volume 93.6 FL (87-102); Mean Platelet Volume 9.1 FL (9.6-12.0); Monocytes # 0.8 10*3/uL (0.11-0.8); Monocytes % 10.7 % (1.7-12.7); Neutrophils % 77.8 % (38.7-73.9); Platelet Count 357 T/CUMM (130-400); Red Blood Count 3.93 MC/CUMM (3.8-5.5); Red Cell Distribution Width 13.8 % (9.3-17.3); White Blood Count 7.2 T/CUMM (4-12)
[2022-03-15 19:06] LABS: Albumin 3.2 G/DL (3.4-5.0); Bilirubin,Total 0.4 MG/DL (0.20-1.00); Calcium 10.7 MG/DL (8.5-10.1); Osmolality,Calculated 271.1 MOS/KG (273-304); Potassium 3.8 MMOL/L (3.5-5.1); Total Protein 7.5 G/DL (6.4-8.2)
[2022-03-15] MEDS ORDERED: GLUCAGON 1 MG VIAL IM PRN (20:25)
[2022-03-15] MEDS ORDERED: ACETAMINOPHEN 325 MG TABLET PO PRN (20:25)
[2022-03-15] MEDS ORDERED: DEXTROSE 10% 250 ML BAG IV PRN (20:37)
[2022-03-15] MEDS: PANTOPRAZOLE 40 MG TABLET PO SCH (21:29)
[2022-03-15] MEDS: INSULIN REGULAR 100 UNIT/ML SUBCUT SCH (21:33)
[2022-03-15] MEDS: SODIUM CHLORIDE 0.9% 1,000 ML IV SCH (21:33)
[2022-03-16 03:48] LABS: Basophils % 0.3 % (0.0-0.8); Eosinophils # 0.2 10*3/uL (0.0-0.87); Eosinophils % 2.1 % (0.00-10.9); Hematocrit 33.2 VOL% (42.0-52.0); Hemoglobin 10.5 GM/DL (14.0-18.0); Immature Granulocytes Absolute 0.07 #; Lymphocytes # 0.5 10*3/uL (1.4-4.0); Lymphocytes % 6.6 % (21.2-54.2); Mean Corpuscular HGB Conc 31.6 GM/DL (32-36); Mean Corpuscular Volume 94.6 FL (87-102); Monocytes # 0.7 10*3/uL (0.11-0.8); Monocytes % 10.6 % (1.7-12.7); Neutrophils % 79.4 % (38.7-73.9); Platelet Count 314 T/CUMM (130-400); Red Blood Count 3.51 MC/CUMM (3.8-5.5); Red Cell Distribution Width 14.1 % (9.3-17.3)
[2022-03-16] MEDS: INSULIN REGULAR 100 UNIT/ML SUBCUT SCH ×4 (07:31→21:04)
[2022-03-16 08:30] LABS: Alanine Aminotransferase 18 U/L (16-61); Albumin 2.9 G/DL (3.4-5.0); Alkaline Phosphatase 90 U/L (45-117); Aspartate Amino Transferase 6 U/L (0-37); Bilirubin,Total < 0.39 MG/DL (0.20-1.00); Blood Urea Nitrogen 10 MG/DL (7-18); Carbon Dioxide 29 MMOL/L (21-32); Chloride 106 MMOL/L (98-107); Estimated Glom Filtration Rate 57 ML/MIN; Glucose 116 MG/DL (74-106); Osmolality,Calculated 274.7 MOS/KG (273-304); Potassium 3.9 MMOL/L (3.5-5.1); Sodium 138 MMOL/L (136-145); Total Protein 6.5 G/DL (6.4-8.2)
[2022-03-16] MEDS: ENOXAPARIN 40 MG/0.4 ML SYRINGE SUBCUT SCH (09:53)
[2022-03-16] MEDS: PANTOPRAZOLE 40 MG TABLET PO SCH ×2 (09:53→21:04)
[2022-03-16] MEDS: SODIUM CHLORIDE 0.9% 1,000 ML IV SCH ×2 (09:54→17:10)
[2022-03-16] MEDS: ONDANSETRON 4 MG/2 ML VIAL IV PRN (12:05)
[2022-03-16] MEDS: CIPROFLOXACIN INJ 400 MG/200 ML PREMIX IV SCH (13:08)
[2022-03-16] MEDS: metroNIDAZOLE INJ 500 MG/100 ML PREMIX IV SCH ×2 (15:28→21:04)
[2022-03-16] MEDS: PROMETHAZINE 25 MG/1 ML VIAL IM PRN (21:04)
[2022-03-16] MEDS: sulfaSALAzine 500 MG TABLET PO SCH (21:04)
[2022-03-17] MEDS: CIPROFLOXACIN INJ 400 MG/200 ML PREMIX IV SCH ×2 (00:26→12:12)
[2022-03-17] MEDS: SODIUM CHLORIDE 0.9% 1,000 ML IV SCH ×2 (02:30→19:13)
[2022-03-17] MEDS: metroNIDAZOLE INJ 500 MG/100 ML PREMIX IV SCH ×3 (05:27→20:52)
[2022-03-17] MEDS: LEVOTHYROXINE 50 MCG TABLET PO SCH (05:30)
[2022-03-17] MEDS: PROMETHAZINE 25 MG/1 ML VIAL IM PRN ×3 (05:30→20:51)
[2022-03-17] MEDS: INSULIN REGULAR 100 UNIT/ML SUBCUT SCH ×4 (07:58→20:53)
[2022-03-17] MEDS: CHOLESTYRAMINE/ASPARTAME 4 GM PACK PO SCH ×2 (09:28→17:04)
[2022-03-17] MEDS: sulfaSALAzine 500 MG TABLET PO SCH ×3 (09:28→20:52)
[2022-03-17] MEDS: PANTOPRAZOLE 40 MG TABLET PO SCH ×2 (09:29→20:52)
[2022-03-17] MEDS: ENOXAPARIN 40 MG/0.4 ML SYRINGE SUBCUT SCH (09:53)
[2022-03-17] MEDS: BUDESONIDE 3 MG CAPSULE PO SCH (17:04)
[2022-03-17] MEDS: ONDANSETRON 4 MG/2 ML VIAL IV PRN (17:04)
[2022-03-17] MEDS: ASPIRIN EC 81 MG TABLET PO SCH (17:04)
[2022-03-17] MEDS: FOLIC ACID 1 MG TABLET PO SCH (17:04)
[2022-03-18] MEDS: CIPROFLOXACIN INJ 400 MG/200 ML PREMIX IV SCH ×3 (00:01→23:48)
[2022-03-18] MEDS: metroNIDAZOLE INJ 500 MG/100 ML PREMIX IV SCH ×3 (05:46→20:54)
[2022-03-18] MEDS: LEVOTHYROXINE 50 MCG TABLET PO SCH (05:46)
[2022-03-18] MEDS: SODIUM CHLORIDE 0.9% 1,000 ML IV SCH ×3 (06:01→21:00)
[2022-03-18 06:12] LABS: Basophils % 0.6 % (0.0-0.8); Eosinophils # 0.2 10*3/uL (0.0-0.87); Eosinophils % 3.6 % (0.00-10.9); Hematocrit 31.3 VOL% (42.0-52.0); Hemoglobin 9.8 GM/DL (14.0-18.0); Immature Granulocytes % 0.8 %; Immature Granulocytes Absolute 0.04 #; Lymphocytes # 0.4 10*3/uL (1.4-4.0); Mean Corpuscular HGB Conc 31.3 GM/DL (32-36); Mean Corpuscular Volume 96.3 FL (87-102); Mean Platelet Volume 9.5 FL (9.6-12.0); Monocytes # 0.6 10*3/uL (0.11-0.8); Monocytes % 11.7 % (1.7-12.7); Neutrophils % 76.3 % (38.7-73.9); Platelet Count 282 T/CUMM (130-400); Red Blood Count 3.25 MC/CUMM (3.8-5.5); Red Cell Distribution Width 13.8 % (9.3-17.3); White Blood Count 5.3 T/CUMM (4-12)
[2022-03-18 06:38] LABS: Alanine Aminotransferase 13 U/L (16-61); Albumin 2.7 G/DL (3.4-5.0); Alkaline Phosphatase 74 U/L (45-117); Aspartate Amino Transferase 11 U/L (0-37); Bilirubin,Total < 0.39 MG/DL (0.20-1.00); Blood Urea Nitrogen 8 MG/DL (7-18); Calcium 8.3 MG/DL (8.5-10.1); Carbon Dioxide 22 MMOL/L (21-32); Chloride 109 MMOL/L (98-107); Estimated Glom Filtration Rate 68 ML/MIN; Glucose 100 MG/DL (74-106); Osmolality,Calculated 274.5 MOS/KG (273-304); Potassium 3.5 MMOL/L (3.5-5.1); Sodium 139 MMOL/L (136-145); Total Protein 5.9 G/DL (6.4-8.2)
[2022-03-18] MEDS: INSULIN REGULAR 100 UNIT/ML SUBCUT SCH ×4 (09:16→21:24)
[2022-03-18] MEDS: CHOLESTYRAMINE/ASPARTAME 4 GM PACK PO SCH ×2 (09:24→16:28)
[2022-03-18] MEDS: ENOXAPARIN 40 MG/0.4 ML SYRINGE SUBCUT SCH (09:25)
[2022-03-18] MEDS: ASPIRIN EC 81 MG TABLET PO SCH (09:32)
[2022-03-18] MEDS: BUDESONIDE 3 MG CAPSULE PO SCH (09:32)
[2022-03-18] MEDS: FOLIC ACID 1 MG TABLET PO SCH (09:32)
[2022-03-18] MEDS: sulfaSALAzine 500 MG TABLET PO SCH ×3 (09:33→20:54)
[2022-03-18] MEDS: PANTOPRAZOLE 40 MG TABLET PO SCH ×2 (09:33→20:54)
[2022-03-18] MEDS: PROMETHAZINE 25 MG/1 ML VIAL IM PRN (21:00)
[2022-03-19] MEDS: LEVOTHYROXINE 50 MCG TABLET PO SCH ×2 (05:26→06:18)
[2022-03-19] MEDS: metroNIDAZOLE INJ 500 MG/100 ML PREMIX IV SCH ×3 (05:26→21:33)
[2022-03-19] MEDS: ONDANSETRON 4 MG/2 ML VIAL IV PRN ×2 (05:29→12:35)
[2022-03-19 05:32] LABS: Alanine Aminotransferase 14 U/L (16-61); Albumin 2.7 G/DL (3.4-5.0); Alkaline Phosphatase 72 U/L (45-117); Aspartate Amino Transferase 13 U/L (0-37); Bilirubin,Total < 0.39 MG/DL (0.20-1.00); Blood Urea Nitrogen 6 MG/DL (7-18); Carbon Dioxide 21 MMOL/L (21-32); Chloride 111 MMOL/L (98-107); Estimated Glom Filtration Rate 68 ML/MIN; Glucose 124 MG/DL (74-106); Osmolality,Calculated 279.3 MOS/KG (273-304); Potassium 3.4 MMOL/L (3.5-5.1); Sodium 141 MMOL/L (136-145)
[2022-03-19] MEDS: CHOLESTYRAMINE/ASPARTAME 4 GM PACK PO SCH ×2 (09:19→17:06)
[2022-03-19] MEDS: INSULIN REGULAR 100 UNIT/ML SUBCUT SCH ×4 (09:21→21:00)
[2022-03-19] MEDS: PANTOPRAZOLE 40 MG TABLET PO SCH ×2 (09:21→21:33)
[2022-03-19] MEDS: ENOXAPARIN 40 MG/0.4 ML SYRINGE SUBCUT SCH (09:21)
[2022-03-19] MEDS: BUDESONIDE 3 MG CAPSULE PO SCH (09:21)
[2022-03-19] MEDS: FOLIC ACID 1 MG TABLET PO SCH (09:21)
[2022-03-19] MEDS: ASPIRIN EC 81 MG TABLET PO SCH (09:22)
[2022-03-19] MEDS: sulfaSALAzine 500 MG TABLET PO SCH ×3 (09:22→21:33)
[2022-03-19] MEDS: SODIUM CHLORIDE 0.9% 1,000 ML IV SCH ×2 (09:32→21:32)
[2022-03-19] MEDS: CIPROFLOXACIN INJ 400 MG/200 ML PREMIX IV SCH (12:28)
[2022-03-19] MEDS: ursodioL 300 MG CAPSULE PO SCH (17:06)
[2022-03-19] MEDS: PROMETHAZINE 25 MG/1 ML VIAL IM PRN (17:07)
[2022-03-20] MEDS: CIPROFLOXACIN INJ 400 MG/200 ML PREMIX IV SCH ×3 (04:17→23:43)
[2022-03-20] MEDS: SODIUM CHLORIDE 0.9% 1,000 ML IV SCH ×3 (04:18→23:29)
[2022-03-20 05:51] LABS: Alanine Aminotransferase 16 U/L (16-61); Albumin 2.6 G/DL (3.4-5.0); Alkaline Phosphatase 67 U/L (45-117); Aspartate Amino Transferase 12 U/L (0-37); Bilirubin,Total < 0.39 MG/DL (0.20-1.00); Blood Urea Nitrogen 5 MG/DL (7-18); Calcium 7.5 MG/DL (8.5-10.1); Carbon Dioxide 23 MMOL/L (21-32); Chloride 115 MMOL/L (98-107); Estimated Glom Filtration Rate 68 ML/MIN; Glucose 137 MG/DL (74-106); Osmolality,Calculated 281.1 MOS/KG (273-304); Potassium 3.7 MMOL/L (3.5-5.1); Sodium 142 MMOL/L (136-145); Total Protein 5.7 G/DL (6.4-8.2)
[2022-03-20] MEDS: LEVOTHYROXINE 50 MCG TABLET PO SCH (05:53)
[2022-03-20] MEDS: metroNIDAZOLE INJ 500 MG/100 ML PREMIX IV SCH ×3 (05:53→20:05)
[2022-03-20] MEDS: INSULIN REGULAR 100 UNIT/ML SUBCUT SCH ×4 (08:09→20:05)
[2022-03-20] MEDS: CHOLESTYRAMINE/ASPARTAME 4 GM PACK PO SCH ×2 (10:18→16:45)
[2022-03-20] MEDS: ENOXAPARIN 40 MG/0.4 ML SYRINGE SUBCUT SCH (10:19)
[2022-03-20] MEDS: ASPIRIN EC 81 MG TABLET PO SCH (10:19)
[2022-03-20] MEDS: BUDESONIDE 3 MG CAPSULE PO SCH (10:19)
[2022-03-20] MEDS: FOLIC ACID 1 MG TABLET PO SCH (10:19)
[2022-03-20] MEDS: ursodioL 300 MG CAPSULE PO SCH ×3 (10:19→20:05)
[2022-03-20] MEDS: PANTOPRAZOLE 40 MG TABLET PO SCH ×2 (10:19→20:04)
[2022-03-20] MEDS: sulfaSALAzine 500 MG TABLET PO SCH ×3 (10:19→20:05)
[2022-03-20] MEDS: ONDANSETRON 4 MG/2 ML VIAL IV PRN (10:23)
[2022-03-20] MEDS: PROMETHAZINE 25 MG/1 ML VIAL IM PRN (13:16)
[2022-03-21] MEDS: metroNIDAZOLE INJ 500 MG/100 ML PREMIX IV SCH ×3 (05:31→20:53)
[2022-03-21] MEDS: LEVOTHYROXINE 50 MCG TABLET PO SCH (05:31)
[2022-03-21] MEDS: CHOLESTYRAMINE/ASPARTAME 4 GM PACK PO SCH ×2 (08:11→16:37)
[2022-03-21] MEDS: ursodioL 300 MG CAPSULE PO SCH ×3 (08:12→20:52)
[2022-03-21] MEDS: PANTOPRAZOLE 40 MG TABLET PO SCH ×2 (08:12→20:53)
[2022-03-21] MEDS: ENOXAPARIN 40 MG/0.4 ML SYRINGE SUBCUT SCH (08:12)
[2022-03-21] MEDS: FOLIC ACID 1 MG TABLET PO SCH (08:12)
[2022-03-21] MEDS: BUDESONIDE 3 MG CAPSULE PO SCH (08:12)
[2022-03-21] MEDS: sulfaSALAzine 500 MG TABLET PO SCH ×3 (08:12→20:52)
[2022-03-21] MEDS: ASPIRIN EC 81 MG TABLET PO SCH (08:12)
[2022-03-21] MEDS: INSULIN REGULAR 100 UNIT/ML SUBCUT SCH ×4 (08:12→20:54)
[2022-03-21] MEDS: SODIUM CHLORIDE 0.9% 1,000 ML IV SCH (12:10)
[2022-03-21] MEDS: CIPROFLOXACIN INJ 400 MG/200 ML PREMIX IV SCH (12:28)
[2022-03-21] MEDS: PROMETHAZINE 25 MG/1 ML VIAL IM PRN (12:30)
[2022-03-21] MEDS: ONDANSETRON 4 MG/2 ML VIAL IV PRN (13:42)
[2022-03-22] MEDS: CIPROFLOXACIN INJ 400 MG/200 ML PREMIX IV SCH ×2 (00:26→12:25)
[2022-03-22] MEDS: SODIUM CHLORIDE 0.9% 1,000 ML IV SCH ×3 (00:28→15:00)
[2022-03-22] MEDS: LEVOTHYROXINE 50 MCG TABLET PO SCH ×2 (05:08→06:33)
[2022-03-22] MEDS: metroNIDAZOLE INJ 500 MG/100 ML PREMIX IV SCH ×3 (05:08→21:40)
[2022-03-22] MEDS: INSULIN REGULAR 100 UNIT/ML SUBCUT SCH ×4 (08:49→20:43)
[2022-03-22] MEDS: CHOLESTYRAMINE/ASPARTAME 4 GM PACK PO SCH ×2 (08:50→16:58)
[2022-03-22] MEDS: ENOXAPARIN 40 MG/0.4 ML SYRINGE SUBCUT SCH (08:50)
[2022-03-22] MEDS: ASPIRIN EC 81 MG TABLET PO SCH (08:51)
[2022-03-22] MEDS: BUDESONIDE 3 MG CAPSULE PO SCH (08:51)
[2022-03-22] MEDS: PANTOPRAZOLE 40 MG TABLET PO SCH ×2 (08:51→21:40)
[2022-03-22] MEDS: ursodioL 300 MG CAPSULE PO SCH ×4 (08:51→21:40)
[2022-03-22] MEDS: FOLIC ACID 1 MG TABLET PO SCH (08:51)
[2022-03-22] MEDS: sulfaSALAzine 500 MG TABLET PO SCH ×2 (08:51→15:00)
[2022-03-22] MEDS: ONDANSETRON 4 MG/2 ML VIAL IV PRN (13:57)
[2022-03-22] MEDS ORDERED: METOCLOPRAMIDE 10 MG TABLET PO PRN (16:23)
[2022-03-23] MEDS: SODIUM CHLORIDE 0.9% 1,000 ML IV SCH ×2 (00:24→14:03)
[2022-03-23] MEDS: sulfaSALAzine 500 MG TABLET PO SCH ×2 (00:24→09:52)
[2022-03-23] MEDS: CIPROFLOXACIN INJ 400 MG/200 ML PREMIX IV SCH ×2 (00:24→11:29)
[2022-03-23 05:19] LABS: Basophils % 0.4 % (0.0-0.8); Eosinophils # 0.2 10*3/uL (0.0-0.87); Eosinophils % 2.8 % (0.00-10.9); Hematocrit 31.3 VOL% (42.0-52.0); Hemoglobin 9.7 GM/DL (14.0-18.0); Immature Granulocytes % 2.5 %; Immature Granulocytes Absolute 0.18 #; Lymphocytes # 0.5 10*3/uL (1.4-4.0); Mean Corpuscular Volume 96.6 FL (87-102); Mean Platelet Volume 10.2 FL (9.6-12.0); Monocytes % 13.3 % (1.7-12.7); Platelet Count 252 T/CUMM (130-400); Red Blood Count 3.24 MC/CUMM (3.8-5.5); Red Cell Distribution Width 14.1 % (9.3-17.3); White Blood Count 7.2 T/CUMM (4-12)
[2022-03-23] MEDS: LEVOTHYROXINE 50 MCG TABLET PO SCH ×2 (05:25→07:35)
[2022-03-23] MEDS: metroNIDAZOLE INJ 500 MG/100 ML PREMIX IV SCH ×2 (05:25→14:03)
[2022-03-23 05:50] LABS: Alanine Aminotransferase 13 U/L (16-61); Albumin 2.5 G/DL (3.4-5.0); Alkaline Phosphatase 46 U/L (45-117); Aspartate Amino Transferase 9 U/L (0-37); Bilirubin,Total < 0.39 MG/DL (0.20-1.00); Blood Urea Nitrogen 10 MG/DL (7-18); Calcium 7.9 MG/DL (8.5-10.1); Carbon Dioxide 20 MMOL/L (21-32); Chloride 114 MMOL/L (98-107); Estimated Glom Filtration Rate 62 ML/MIN; Glucose 106 MG/DL (74-106); Osmolality,Calculated 279.3 MOS/KG (273-304); Potassium 3.7 MMOL/L (3.5-5.1); Sodium 141 MMOL/L (136-145); Total Protein 5.7 G/DL (6.4-8.2)
[2022-03-23] MEDS: INSULIN REGULAR 100 UNIT/ML SUBCUT SCH ×2 (07:36→11:31)
[2022-03-23] MEDS: CHOLESTYRAMINE/ASPARTAME 4 GM PACK PO SCH (08:23)
[2022-03-23] MEDS: ENOXAPARIN 40 MG/0.4 ML SYRINGE SUBCUT SCH (09:51)
[2022-03-23] MEDS: ASPIRIN EC 81 MG TABLET PO SCH (09:52)
[2022-03-23] MEDS: FOLIC ACID 1 MG TABLET PO SCH (09:52)
[2022-03-23] MEDS: BUDESONIDE 3 MG CAPSULE PO SCH (09:52)
[2022-03-23] MEDS: ursodioL 300 MG CAPSULE PO SCH (09:52)
[2022-03-23] MEDS: PANTOPRAZOLE 40 MG TABLET PO SCH (09:52)
[2022-03-23 11:53] VITALS: BP 127/67
== END 2022-03-23 13:56 | disposition home or self-care (01) | DRG 439 ==
LOC: N.EDINP 17:31 → N.ED 17:31 → SUATTDRO 20:25 → N.5E 03-16 17:16
PROVIDERS: ADMIT Family Medicine; ATTEND Emergency Medicine